=== PATIENT | female | born 1995 | race Caucasian/White ===

== ENCOUNTER 2017-02-23 22:55 | Inpatient (IN) | payer BC ==
[~2017-02-23] VITALS: Ht 167.6 cm; Wt 63.5 kg
[2017-02-23] MEDS ORDERED: LORazepam Inj 2mg/ml 1ml ONE (23:21)
[2017-02-23] MEDS ORDERED: LORazepam Inj 2mg/ml 1ml IV ONE ×3 (23:30→23:45)
[2017-02-23] MEDS ORDERED: Phenytoin 1,000 MG in NS 275 ML IV ONE (23:45)
[2017-02-24] VITALS (17 sets, daily range): BP systolic 113–162; BP diastolic 58–104
[2017-02-24 00:13] LABS: BASOPHILS % (AUTO) 0.8 % (0.0-2.0); EOSINOPHILS % (AUTO) 1.9 % (0.0-3.0); MEAN CORPUSCULAR HEMOGLOBIN 27.3 PG (27.0-31.0); MEAN CORPUSCULAR HGB CONC 33.8 G/DL (32.0-36.0); MEAN CORPUSCULAR VOLUME 81 FL (80-99); MEAN PLATELET VOLUME 7.3 FL (6.5-10.1); MONOCYTES % (AUTO) 6.5 % (1.0-10.0); NEUTROPHILS % (AUTO) 63.8 % (45.0-75.0); PLATELET COUNT 293 K/UL (150-450); RED CELL DISTRIBUTION WIDTH 14.8 % (11.6-14.8)
[2017-02-24 00:33] LABS: ACETAMINOPHEN < 10 ug/mL (10-30); ALANINE AMINOTRANSFERASE 13 U/L (3-41); ALBUMIN/GLOBULIN RATIO 1.4 (1.0-2.7); ALCOHOL < 10 mg/dL; ANION GAP 22 (5-15); ASPARTATE AMINO TRANSFERASE 15 U/L (5-40); CALCIUM 9.9 mg/dL (8.6-10.2); CARBON DIOXIDE 20 mEQ/L (20-30); CHLORIDE 98 mEQ/L (98-107); CREATININE 0.9 mg/dL (0.7-1.2); GLOMERULAR FILTRATION RATE > 60 mL/min (>60); HEMOLYSIS 7; SODIUM 140 mEQ/L (135-145); TOTAL PROTEIN 7.7 g/dL (6.6-8.7)
[2017-02-24] MEDS ORDERED: levETIRAcetam 1,000mg/NS100ml 100 ML IVPB ONE (01:15)
[2017-02-24] MEDS ORDERED: LORazepam Inj 2mg/ml 1ml IV ONE (01:30)
[2017-02-24] MEDS ORDERED: PROTONIX40 MG ORAL (02:00)
[2017-02-24] MEDS ORDERED: GABAPENTIN600 MG ORAL (02:00)
[2017-02-24] MEDS ORDERED: LAMICTAL100 MG ORAL (02:00)
[2017-02-24] MEDS ORDERED: PROPRANOLOL HCL20 MG ORAL (02:00)
[2017-02-24] MEDS ORDERED: MULTIVITAMINS1 EAC2 ORAL (02:00)
[2017-02-24] MEDS ORDERED: METRONIDAZOLE500 MG ORAL (02:00)
[2017-02-24] MEDS ORDERED: KEPPRA500 M4 ORAL (02:00)
[2017-02-24 02:09] LABS: APPEARANCE,URINE CLEAR; KETONES,URINE NEGATIVE (NEGATIVE); LEUKOCYTE ESTERASE ,URINE NEGATIVE (NEGATIVE); NITRITE,URINE NEGATIVE (NEGATIVE); PH,URINE 6 (4.5-8.0); PROTEIN,URINE 1+ (NEGATIVE); UROBILINOGEN,URINE NORMAL MG/DL (0.0-1.0)
[2017-02-24 02:34] LABS: RBC,URINE 0-2 /HPF (0 - 2); SQUAMOUS EPITHELIAL CELL,UR FEW /LPF (NONE/OCC); WBC,URINE 0-2 /HPF (0 - 2)
--- NOTE | 2017-02-24 03:10 | Emergency Room Report ---
History of Present Illness General Chief Complaint: Seizure Source: EMS Present Illness HPI 21-year-old female presents to ED status post seizure. Patient resides in rehabilitation facility. Per EMS patient had 2 seizures. Patient has history of seizures-takes Keppra. Denies drug use. Denies chest pain or shortness of breath. Denies fevers or chills. No other aggravating or leading factors. No other associated symptoms Allergies: Coded Allergies: No Known Allergies (Unverified , 02/23/17) Patient History Past Medical History: none Past Surgical History: none Pertinent Family History: none Social History: Denies: alcohol use, drug use, smoking Last Menstrual Period: a week ago Now: No Immunizations: UTD Reviewed Nursing Documentation: PMH: Agreed, PSxH: Agreed Nursing Documentation-PMH Hx Seizures: Yes Review of Systems All Other Systems: limited Physical Exam Vital Signs Date Time Temp Pulse Resp B/P Pulse Ox O2 Delivery O2 Flow Rate FiO2 02/23/17 22:51 98.1 118 16 123/74 99 Room Air 02/23/17 23:25 5.0 02/24/17 00:50 40 Sp02 EP Interpretation: reviewed, normal General Appearance: lethargic, obese Head: normocephalic Eyes: bilateral eye PERRL, bilateral eye normal inspection ENT: normal ENT inspection Neck: normal inspection Respiratory: chest non-tender, lungs clear, normal breath sounds, speaking full sentences Cardiovascular #1: tachycardia Gastrointestinal: normal bowel sounds, non tender, soft, non-distended, no guarding, no rebound Rectal: deferred Genitourinary: no CVA tenderness Musculoskeletal: normal inspection Neurologic: other - lthargic Psychiatric: other - lethargic Skin: normal inspection Lymphatic: normal inspection Procedures Critical Care Time Critical Care Time i. I feel this is a highly complex case requiring extensive working including EKG/Rhythm strip, Xray/CT/US, Blood/urine lab work, repeat exams while in ED, and administration of strong opiates/narcotics for pain control, admission to hospital or close patient follow up. Total time: 30 min bedside evaluation and treatment excludes procedures (EKG). Reason for critical care: Status epilepticus Possible complications: hypotension, hypertension, [place], shock, arrhythmias, metabolic acidosis, end organ damage, respiratory failure. Interventions: Labs, IV fluids, EKG. Ativan multiple times. Dilantin. Keppra. Intubation. Propofol Course: patient brought in for seizures. Patient had 2 seizures in the field. Patient had multiple seizures in ER. Multiple rounds of Ativan given without improvement. Patient given Dilantin loading does. Patient continued to have seizures. Patient intubated. Patient started on propofol Consultations: nursing staff, EMS, family Performed by: Dr Gilbert Tolerated well condition = critical j. because of unstable vital signs this patient had a condition that could potentially threaten life or limb. I feel this is a critical patient who required my full attention while patient was considered critical. Total Critical Care Time excluding procedures was greater than 35 minutes Intubation Intubation : Consent: Emergent Intubation Method: orotracheal Tube Size (cm): 7.5 Medications: Etomidate, Rocuronium Breath Sounds after Intubation: equal Intubation Complications: no complications Post Intubation Xray: Yes Attempts: One Patient Tolerated: Well Complications: None Medical Decision Making Diagnostic Impression: Primary Impression: Status epilepticus ER Course Hospital Course 21-year-old F presents to ED status post seizure. Differential diagnosis includes- breakthrough seizure, alcohol abuse, noncompliance with medication Clinical course Patient placed on stretcher. Initial history and physical I ordered labs, IV fluids Patient had multiple seizures in ED. Not controlled with multiple rounds of Ativan, Dilantin. Patient O2 saturations low. I made decision to intubate the patient Patient started on propofol drip Labs-electrolytes okay, no leukocytosis noted, hemoglobin/hematocrit stable. EKG-sinus tachycardia, no ischemic changes interpreted by me Chest x-ray shows ET tube in place Given loading dose of Keppra. Seizures currently controlled with propofol Case discussed with Dr. Webster and he agreed to accept the patient to his service for further care and support. i. I feel this is a highly complex case requiring extensive working including EKG/Rhythm strip, Xray/CT/US, Blood/urine lab work, repeat exams while in ED, and administration of strong opiates/narcotics for pain control, admission to hospital or close patient follow up. Diagnosis -status epilepticus admitted to ICU in critical condition Labs Test 02/23/17 23:40 02/24/17 01:35 White Blood Count 9.0 K/UL (4.8-10.8) Red Blood Count 4.20 M/UL (4.70-6.10) Hemoglobin 11.5 G/DL (14.2-18.0) Hematocrit 33.9 % (42.0-52.0) Mean Corpuscular Volume 81 FL (80-99) Mean Corpuscular Hemoglobin 27.3 PG (27.0-31.0) Mean Corpuscular Hemoglobin Concent 33.8 G/DL (32.0-36.0) Red Cell Distribution Width 14.8 % (11.6-14.8) Platelet Count 293 K/UL (150-450) Mean Platelet Volume 7.3 FL (6.5-10.1) Neutrophils (%) (Auto) 63.8 % (45.0-75.0) Lymphocytes (%) (Auto) 27.0 % (20.0-45.0) Monocytes (%) (Auto) 6.5 % (1.0-10.0) Eosinophils (%) (Auto) 1.9 % (0.0-3.0) Basophils (%) (Auto) 0.8 % (0.0-2.0) Sodium Level 140 mEQ/L (135-145) Potassium Level 4.0 mEQ/L (3.4-4.9) Chloride Level 98 mEQ/L (98-107) Carbon Dioxide Level 20 mEQ/L (20-30) Anion Gap 22 (5-15) Blood Urea Nitrogen 8 mg/dL (7-23) Creatinine 0.9 mg/dL (0.7-1.2) Estimat Glomerular Filtration Rate > 60 mL/min (>60) Glucose Level 102 mg/dL (74-106) Calcium Level 9.9 mg/dL (8.6-10.2) Total Bilirubin 0.3 mg/dL (0.0-1.2) Aspartate Amino Transf (AST/SGOT) 15 U/L (5-40) Alanine Aminotransferase (ALT/SGPT) 13 U/L (3-41) Alkaline Phosphatase 58 U/L (40-129) Total Protein 7.7 g/dL (6.6-8.7) Albumin 4.6 g/dL (3.5-5.2) Globulin 3.1 g/dL Albumin/Globulin Ratio 1.4 (1.0-2.7) Triglycerides Level 113 mg/dL (< 150) Salicylates Level < 1 mg/dL (10-30) Acetaminophen Level < 10 ug/mL (10-30) Serum Alcohol < 10 mg/dL Urine Color Pale yellow Urine Appearance Clear Urine pH 6 (4.5-8.0) Urine Specific [place] 1.015 (1.005-1.035) Urine Protein 1+ (NEGATIVE) Urine Glucose (UA) Negative (NEGATIVE) Urine Ketones Negative (NEGATIVE) Urine Occult Blood 2+ (NEGATIVE) Urine Nitrite Negative (NEGATIVE) Urine Bilirubin Negative (NEGATIVE) Urine Urobilinogen Normal MG/DL (0.0-1.0) Urine Leukocyte Esterase Negative (NEGATIVE) Urine RBC 0-2 /HPF (0 - 2) Urine WBC 0-2 /HPF (0 - 2) Urine Squamous Epithelial Cells Few /LPF (NONE/OCC) Urine Bacteria None /HPF (NONE) Urine HCG, Qualitative Negative Urine Opiates Screen Negative (NEGATIVE) Urine Barbiturates Screen Negative (NEGATIVE) Phencyclidine (PCP) Screen Negative (NEGATIVE) Urine Amphetamines Screen Negative (NEGATIVE) Urine Benzodiazepines Screen Positive (NEGATIVE) Urine Cocaine Screen Negative (NEGATIVE) Urine Marijuana (THC) Screen Negative (NEGATIVE) EKG Diagnostic Results Rate: tachycardiac Rhythm: NSR ST Segments: no acute changes ASA given to the pt in ED: No Rhythm Strip Diag. Results EP Interpretation: yes Rhythm: NSR, no PVC's, no ectopy Chest X-Ray Diagnostic Results Chest X-Ray Diagnostic Results : Chest X-Ray Ordered: Yes # of Views/Limited/Complete: 1 View Indication: Other - intubated EP Interpretation: Yes Interpretation: no consolidation, no effusion, no pneumothorax, no acute cardiopulmonary disease, other - ET tube in place Impression: Other - intubated Interpreting ER Provider: Electronically signed by Riky Gilbert MD Last Vital Signs Date Time Temp Pulse Resp B/P Pulse Ox O2 Delivery O2 Flow Rate FiO2 02/24/17 02:55 99 14 30 02/24/17 02:20 98.1 143/90 100 Mechanical Ventilator 5.0 Status: improved Disposition: ADMITTED INPATIENT Condition: Critical Referrals: NOT CHOSEN IPA/,REFERRING (PCP) RIKY GILBERT M.D. Feb 24, 2017 03:10
[2017-02-24] MEDS ORDERED: Morphine Sulfate 4mg/ml Inj IVP PRN (06:15)
[2017-02-24] MEDS ORDERED: Nitroglycerin Subl 0.4mg tab (Bottle Of 25) SL PRN (06:15)
[2017-02-24] MEDS ORDERED: LORazepam Inj 2mg/ml 1ml IV PRN (06:15)
[2017-02-24] MEDS ORDERED: DuoNeb 0.5-3(2.5)mg/3ml neb HHN PRN (06:15)
[2017-02-24] MEDS ORDERED: D5 1/2NS 1,000 ML IV SCH (07:00)
[2017-02-24 07:32] LABS: BASOPHILS % (AUTO) 0.6 % (0.0-2.0); EOSINOPHILS % (AUTO) 2.1 % (0.0-3.0); LYMPHOCYTES % (AUTO) 27.1 % (20.0-45.0); MEAN CORPUSCULAR HEMOGLOBIN 27.4 PG (27.0-31.0); MEAN CORPUSCULAR HGB CONC 33.2 G/DL (32.0-36.0); MEAN CORPUSCULAR VOLUME 83 FL (80-99); MEAN PLATELET VOLUME 7.3 FL (6.5-10.1); MONOCYTES % (AUTO) 8.1 % (1.0-10.0); NEUTROPHILS % (AUTO) 62.1 % (45.0-75.0); PLATELET COUNT 285 K/UL (150-450); RED BLOOD COUNT 4.18 M/UL (4.20-5.40); RED CELL DISTRIBUTION WIDTH 15.1 % (11.6-14.8); WHITE BLOOD COUNT 9.7 K/UL (4.8-10.8)
[2017-02-24 07:40] LABS: ALANINE AMINOTRANSFERASE 12 U/L (3-33); ALBUMIN/GLOBULIN RATIO 1.5 (1.0-2.7); ANION GAP 11 (5-15); ASPARTATE AMINO TRANSFERASE 16 U/L (5-40); BILIRUBIN,DIRECT 0.1 mg/dL (0.1-0.3); CALCIUM 9.4 mg/dL (8.6-10.2); CARBON DIOXIDE 26 mEQ/L (20-30); CHLORIDE 103 mEQ/L (98-107); CREATININE 0.9 mg/dL (0.5-0.9); GLOMERULAR FILTRATION RATE > 60 mL/min (>60); HEMOLYSIS 0; LACTATE DEHYDROGENASE 223 U/L (135-230); PHOSPHORUS 4.1 mg/dL (2.5-4.8); POTASSIUM 3.8 mEQ/L (3.4-4.9); SODIUM 140 mEQ/L (135-145); TOTAL PROTEIN 7.3 g/dL (6.6-8.7)
[2017-02-24 08:04] LABS: PROTHROMBIN TIME 10.5 SEC (9.30-11.50)
[2017-02-24] MEDS ORDERED: Heparin 5000 units/ml inj SUBQ SCH (09:00)
--- NOTE | 2017-02-24 10:48 | History and Physical ---
History of Present Illness General Date patient seen: Feb 24, 2017 Reason for Hospitalization: Seizure Present Illness HPI 21-year-old female presents to ED status post seizure. Patient resides in rehabilitation facility. Per EMS patient had 2 seizures. Patient has history of seizures, she is on Keppra. Denies drug use. Denies chest pain or shortness of breath. Denies fevers or chills. No other aggravating or leading factors. No other associated symptoms. Pt was in status epilepticus in ER and was started on Propofol drip and intubated and transferred to ICU. Allergies: Coded Allergies: No Known Allergies (Unverified , 02/23/17) Medication History Scheduled Gabapentin* (Gabapentin*), 600 MG ORAL THREE TIMES A DAY, (Reported) Lamotrigine* (Lamictal*), 100 MG ORAL DAILY, (Reported) Levetiracetam (Keppra), 500 MG ORAL BID, (Reported) Metronidazole* (Flagyl*), 500 MG ORAL TID, (Reported) Multivitamins* (Multivitamins*), 1 TAB ORAL DAILY, (Reported) Pantoprazole* (Protonix*), 40 MG ORAL DAILY, (Reported) Propranolol Hcl* (Inderal*), 20 MG ORAL THREE TIMES A DAY, (Reported) Patient History Healthcare decision maker Resuscitation status Full Code Advanced Directive on File No Past Medical/Surgical History Past Medical/Surgical History: (1) Seizure disorder Review of Systems Constitutional: Reports: no symptoms ENT: Reports: no symptoms Respiratory: Reports: no symptoms Cardiovascular: Reports: no symptoms Gastrointestinal: Reports: no symptoms Genitourinary: Reports: no symptoms Physical Exam General Appearance: WD/WN, no apparent distress Lines, tubes and drains: peripheral HEENT: normocephalic, atraumatic Neck: non-tender, normal alignment Respiratory/Chest: chest wall non-tender, lungs clear Breasts: no masses Cardiovascular/Chest: normal peripheral pulses Abdomen: normal bowel sounds Genitourinary/Rectal: normal genital exam Extremities: normal range of motion Last 24 Hour Vital Signs Date Time Temp Pulse Resp B/P Pulse Ox O2 Delivery O2 Flow Rate FiO2 02/24/17 10:00 112 16 134/61 100 Nasal Cannula 2.0 02/24/17 09:11 117 18 30 02/24/17 09:00 113 18 125/62 100 Mechanical Ventilator 30 02/24/17 08:11 30 02/24/17 08:02 97.6 102 16 136/63 100 Mechanical Ventilator 30 02/24/17 08:00 102 02/24/17 07:16 98.1 99 14 125/79 100 Mechanical Ventilator 5.0 30 02/24/17 06:52 98.1 99 14 125/79 100 Mechanical Ventilator 5.0 30 02/24/17 05:57 98.1 94 14 143/80 98 Mechanical Ventilator 5.0 30 02/24/17 05:30 98.1 99 14 137/77 96 Mechanical Ventilator 5.0 30 02/24/17 04:52 99 14 30 02/24/17 04:21 98.1 98 14 155/104 99 Mechanical Ventilator 5.0 30 02/24/17 03:25 98.1 101 14 162/100 100 Mechanical Ventilator 5.0 30 02/24/17 03:04 5.0 30 02/24/17 03:04 98.1 99 14 150/96 100 Mechanical Ventilator 5.0 30 02/24/17 02:55 99 14 30 02/24/17 02:20 98.1 100 14 143/90 100 Mechanical Ventilator 5.0 40 02/24/17 02:00 98.1 108 15 122/86 100 Mechanical Ventilator 5.0 40 02/24/17 01:01 40 02/24/17 00:55 119 16 40 02/24/17 00:50 98.1 122 14 135/102 94 Mechanical Ventilator 40 02/24/17 00:35 14 02/24/17 00:30 12 02/24/17 00:25 14 02/24/17 00:20 15 02/24/17 00:20 98.1 121 15 129/81 100 Simple Mask 5.0 02/23/17 23:25 118 16 Simple Mask 5.0 02/23/17 22:51 98.1 118 16 123/74 99 Room Air Intake and Output 02/23/17 02/24/17 19:00 07:00 Intake Total 1375 ml Output Total 825 ml Balance 550 ml Intake IV Total 1375 ml Output Urine Total 825 ml Laboratory Tests Test 02/23/17 23:40 02/24/17 01:35 02/24/17 06:40 White Blood Count 9.0 K/UL (4.8-10.8) 9.7 K/UL (4.8-10.8) Red Blood Count 4.20 M/UL (4.70-6.10) L 4.18 M/UL (4.20-5.40) L Hemoglobin 11.5 G/DL (14.2-18.0) L 11.4 G/DL (12.0-16.0) L Hematocrit 33.9 % (42.0-52.0) L 34.5 % (37.0-47.0) L Mean Corpuscular Volume 81 FL (80-99) 83 FL (80-99) Mean Corpuscular Hemoglobin 27.3 PG (27.0-31.0) 27.4 PG (27.0-31.0) Mean Corpuscular Hemoglobin Concent 33.8 G/DL (32.0-36.0) 33.2 G/DL (32.0-36.0) Red Cell Distribution Width 14.8 % (11.6-14.8) 15.1 % (11.6-14.8) H Platelet Count 293 K/UL (150-450) 285 K/UL (150-450) Mean Platelet Volume 7.3 FL (6.5-10.1) 7.3 FL (6.5-10.1) Neutrophils (%) (Auto) 63.8 % (45.0-75.0) 62.1 % (45.0-75.0) Lymphocytes (%) (Auto) 27.0 % (20.0-45.0) 27.1 % (20.0-45.0) Monocytes (%) (Auto) 6.5 % (1.0-10.0) 8.1 % (1.0-10.0) Eosinophils (%) (Auto) 1.9 % (0.0-3.0) 2.1 % (0.0-3.0) Basophils (%) (Auto) 0.8 % (0.0-2.0) 0.6 % (0.0-2.0) Sodium Level 140 mEQ/L (135-145) 140 mEQ/L (135-145) Potassium Level 4.0 mEQ/L (3.4-4.9) 3.8 mEQ/L (3.4-4.9) Chloride Level 98 mEQ/L (98-107) 103 mEQ/L (98-107) Carbon Dioxide Level 20 mEQ/L (20-30) 26 mEQ/L (20-30) Anion Gap 22 (5-15) H 11 (5-15) Blood Urea Nitrogen 8 mg/dL (7-23) 7 mg/dL (7-23) Creatinine 0.9 mg/dL (0.7-1.2) 0.9 mg/dL (0.5-0.9) Estimat Glomerular Filtration Rate > 60 mL/min (>60) > 60 mL/min (>60) Glucose Level 102 mg/dL (74-106) 94 mg/dL (74-106) Calcium Level 9.9 mg/dL (8.6-10.2) 9.4 mg/dL (8.6-10.2) Total Bilirubin 0.3 mg/dL (0.0-1.2) 0.4 mg/dL (0.0-1.2) Aspartate Amino Transf (AST/SGOT) 15 U/L (5-40) 16 U/L (5-40) Alanine Aminotransferase (ALT/SGPT) 13 U/L (3-41) 12 U/L (3-33) Alkaline Phosphatase 58 U/L (40-129) 54 U/L (35-104) Total Protein 7.7 g/dL (6.6-8.7) 7.3 g/dL (6.6-8.7) Albumin 4.6 g/dL (3.5-5.2) 4.4 g/dL (3.5-5.2) Globulin 3.1 g/dL 2.9 g/dL Albumin/Globulin Ratio 1.4 (1.0-2.7) 1.5 (1.0-2.7) Triglycerides Level 113 mg/dL (< 150) Salicylates Level < 1 mg/dL (10-30) L Acetaminophen Level < 10 ug/mL (10-30) L Serum Alcohol < 10 mg/dL Urine Color Pale yellow Urine Appearance Clear Urine pH 6 (4.5-8.0) Urine Specific [place] 1.015 (1.005-1.035) Urine Protein 1+ (NEGATIVE) H Urine Glucose (UA) Negative (NEGATIVE) Urine Ketones Negative (NEGATIVE) Urine Occult Blood 2+ (NEGATIVE) H Urine Nitrite Negative (NEGATIVE) Urine Bilirubin Negative (NEGATIVE) Urine Urobilinogen Normal MG/DL (0.0-1.0) Urine Leukocyte Esterase Negative (NEGATIVE) Urine RBC 0-2 /HPF (0 - 2) Urine WBC 0-2 /HPF (0 - 2) Urine Squamous Epithelial Cells Few /LPF (NONE/OCC) Urine Bacteria None /HPF (NONE) Urine HCG, Qualitative Negative Urine Opiates Screen Negative (NEGATIVE) Urine Barbiturates Screen Negative (NEGATIVE) Phencyclidine (PCP) Screen Negative (NEGATIVE) Urine Amphetamines Screen Negative (NEGATIVE) Urine Benzodiazepines Screen Positive (NEGATIVE) H Urine Cocaine Screen Negative (NEGATIVE) Urine Marijuana (THC) Screen Negative (NEGATIVE) Prothrombin Time 10.5 SEC (9.30-11.50) Prothromb Time International Ratio 1.0 (0.9-1.1) Activated Partial Thromboplast Time 30 SEC (23-33) Phosphorus Level 4.1 mg/dL (2.5-4.8) Direct Bilirubin 0.1 mg/dL (0.1-0.3) Lactate Dehydrogenase 223 U/L (135-230) Height (Feet): 5 Height (Inches): 6.00 Weight (Pounds): 140 Medications Current Medications Medications (Trade) Dose Ordered Sig/Tamara Route PRN Reason Start Time Stop Time Status Last Admin Dose Admin Acetaminophen (Tylenol) 650 mg Q4H PRN ORAL Fever 02/24/17 06:15 03/26/17 06:14 Albuterol/ Ipratropium (DuoNeb 0.5-3(2.5)mg/3ml) 3 ml Q4H PRN HHN Shortness of Breath 02/24/17 06:15 03/01/17 06:14 Dextrose (Dextrose 50%) STAT PRN IV Hypoglycemia 02/24/17 06:15 03/26/17 06:14 Dextrose/Sodium Chloride (D5 0.45% NS) 1,000 ml @ 75 mls/hr [id number] IV 02/24/17 07:00 03/26/17 06:59 02/24/17 07:00 Gabapentin (Neurontin) 600 mg THREE TIMES A DAY ORAL 02/24/17 09:00 03/26/17 08:59 Heparin Sodium (Porcine) (Heparin 5000 units/ml) 5,000 units EVERY 12 HOURS SUBQ 02/24/17 09:00 03/26/17 08:59 Lamotrigine (LaMICtal) 100 mg DAILY ORAL 02/24/17 09:00 03/26/17 08:59 Levetiracetam (Keppra) 500 mg BID ORAL 02/24/17 09:00 03/26/17 08:59 Lorazepam (Ativan 2mg/ml 1ml) 2 mg Q2H PRN IV agitation 02/24/17 06:15 03/03/17 06:14 Morphine Sulfate (Morphine Sulfate) 4 mg Q4H PRN IVP Severe Pain (Pain Scale 7-10) 02/24/17 06:15 03/03/17 06:14 Nitroglycerin (Ntg) 0.4 mg Q5M PRN SL Prn Chest Pain 02/24/17 06:15 03/26/17 06:14 Ondansetron HCl (Zofran) 4 mg Q6H PRN IVP Nausea & Vomiting 02/24/17 06:15 03/26/17 06:14 Assessment/Plan Problem List: (1) Acute respiratory failure ICD Codes: J96.00 - Acute respiratory failure, unspecified whether with hypoxia or hypercapnia SNOMED: 34598240 (2) Status epilepticus ICD Codes: G40.901 - Epilepsy, unspecified, not intractable, with status epilepticus SNOMED: 624544563 Respiratory: monitor respiratory rate, adjust FIO2, CXR, weaning trial Cardiac: continue to monitor HR/BP Renal: F/U I&O, keep IV fluid Infectious Disease: check cultures Gastrointestinal: continue feedings/current rate Endocrine: monitor blood sugar Hematologic: monitor H/H Neurologic: PRN Ativan, PRN Morphine Affect: PRN ativan Prophylaxis: Protonix, Heparin Disposition: keep in ICU Notes Reviewed: neuro Discussed with: nurses, consultants, telephonic case manager DREW IVERSON Feb 24, 2017 10:48
--- NOTE | 2017-02-24 13:19 | Diagnostic Imaging Report ---
Indication: Post endotracheal intubation Technique: One view of the chest Comparison: None Findings: Lungs and pleural spaces are clear. A linear band of the left lung base is probably extrinsic to the patient. There is an endotracheal tube in place, tip projected approximately 3 cm above the dann. Normal heart size Impression: Satisfactory endotracheal intubation No definite acute pulmonary process This agrees with the preliminary interpretation provided by the emergency room physician This agrees with the preliminary interpretation provided overnight by [facility] teleradiology service.
[2017-02-24] MEDS ORDERED: Zemuron 50mg/5ml Inj IV ONE (15:59)
[2017-02-24] MEDS ORDERED: Etomidate 40mg/20ml Inj IV ONE (15:59)
--- NOTE | 2017-02-24 16:24 | Cardiology Report ---
APPROVED REPORT EKG Measurement Heart [id number] Sinus tachycardia Otherwise normal ECG
--- NOTE | 2017-02-26 07:50 | Discharge Summary ---
Discharge Summary Hospital Course Date of Admission Feb 24, 2017 at 01:02 Date of Discharge Feb 24, 2017 at 16:00 Admitting Diagnosis STATUS EPILEPTICUS HPI Elizabeth Mccord is a 21 year old female who was admitted on Feb 24, 2017 at 01:02 for Status Epilepticus Hospital Course [id number] Discharge Discharge Disposition Patient left AMA Discharge Diagnoses: Patricia Johns NP Feb 26, 2017 07:50
--- NOTE | 2017-02-27 00:15 | Discharge Summary 2 SIG ---
DATE OF ADMISSION: 02/24/2017 DATE OF DISCHARGE: 02/24/2017 BRIEF HOSPITAL COURSE: The patient is a 21-year-old female who presented to ED post seizure. The patient resides in a rehabilitation facility and had a seizure event. She has a history of seizure disorder and has been on Keppra. On arrival to ED, she had multiple seizures, not controlled with multiple rounds of Ativan and Dilantin. O2 saturation was low, and she was orally intubated. Labs showed no leukocytosis with stable hemoglobin and hematocrit. EKG was in sinus tachycardia with no ischemic changes. She was given loading doses of Keppra and was given propofol. She was then admitted to ICU due to status epilepticus. She was given Lamictal, Keppra, and heparin for DVT prophylaxis. Stat chest x-ray showed satisfactory endotracheal intubation with no acute pulmonary process. The patient was eventually extubated on 02/24/2017 and was placed on seizure precautions. The patient became more awake and agitated, pulling out electrodes. Full treatment was not carried as the patient signed out against medical advice. She was seen by the drug abuse social worker prior to leaving the hospital. FINAL DIAGNOSES: 1. Acute respiratory failure requiring intubation, status post extubation. 2. Status epilepticus. 3. Noncompliance as the patient signed out against medical advice. Kristen Webster M.D. I have been assigned to dictate discharge summary on this account and I was not involved in the patient's management. Patricia Johns N.P. DR: UBALDO JOB#: [id number] CC:
== END 2017-02-24 16:00 | disposition left against medical advice (07) | DRG 208 ==
LOC: EDBD 22:55 → EMR 23:50 → EDSEX 23:50 → EDBEDREQ 02-24 00:35 → ICU 02-24 01:02 → EDBEDREQ 02-24 01:17
PROC: 5A1935Z Respiratory Ventilation, Less than 24 Consecutive Hours (ICD-10-PCS; principal; 2017-02-24)
PROC: 0BH17EZ Insertion of Endotracheal Airway into Trachea, Via Natural or Artificial Opening (ICD-10-PCS; principal; 2017-02-24)
DX: J96.00 Acute respiratory failure, unspecified whether with hypoxia or hypercapnia (principal); G40.901 Epilepsy, unspecified, not intractable, with status epilepticus; R00.0 Tachycardia, unspecified; Z91.19 Patient's noncompliance with other medical treatment and regimen; Z53.21 Procedure and treatment not carried out due to patient leaving prior to being seen by health care provider
CPT/HCPCS: 31500; 36415; 71010; 80053; 80299; 80300; 80329; 81003; 81025; 82248; 83615; 84100; 84478; 85025; 85610; 85730; 87081; 93005; 94002; J1165

== ENCOUNTER 2017-07-05 22:26 | Inpatient (IN) | payer BC ==
[~2017-07-05] VITALS: Ht 170.2 cm; Wt 105.2 kg
[~2017-07-05 22:26] MED LIST: GABAPENTIN600 MG ORAL; GABAPENTIN800 MG ORAL; KEPPRA500 M4 ORAL; LAMICTAL100 MG ORAL; METRONIDAZOLE500 MG ORAL; MULTIVITAMINS1 EAC2 ORAL; PROPRANOLOL HCL20 MG ORAL; PROTONIX40 MG ORAL
[2017-07-05] MEDS ORDERED: DiphenhydrAMINE 50mg/ml Inj IVP ONE (22:30)
[2017-07-05] MEDS ORDERED: Metoclopramide 10mg/2ml Inj IVP ONE (22:30)
[2017-07-05] MEDS ORDERED: Ketorolac 30mg Inj IV ONE (22:30)
[2017-07-05] MEDS ORDERED: CATAPRES0.2 MG ORAL (22:35)
[2017-07-05] MEDS ORDERED: LATUDA60 MG PO (22:35)
[2017-07-05] MEDS ORDERED: SEROQUEL200 MG ORAL (22:35)
[2017-07-05] MEDS ORDERED: METAXALL800 MG PO (22:35)
[2017-07-05] MEDS ORDERED: HYDROXYZINE PA100 MG ORAL (22:35)
[2017-07-05] MEDS ORDERED: CEPHALEXIN500 M1 ORAL (22:35)
[2017-07-05] MEDS ORDERED: ZOFRAN4 M3 ORAL (22:35)
[2017-07-05] MEDS ORDERED: LAMICTAL100 MG ORAL (22:35)
[2017-07-05] MEDS ORDERED: NORCO 5-325 TA1 EACH ORAL (22:35)
[2017-07-05] MEDS ORDERED: LEVETIRACETAM500 MG ORAL (22:35)
[2017-07-05] MEDS ORDERED: PROAIR HFA8.5 GM INH (22:35)
[2017-07-05] MEDS ORDERED: PHENERGAN25 M1 ORAL (22:35)
[2017-07-05] MEDS ORDERED: IBUPROFEN600 MG ORAL (22:35)
[2017-07-05 23:00] VITALS: BP 117/61
[2017-07-05 23:00] LABS: APPEARANCE,URINE CLEAR; KETONES,URINE NEGATIVE (NEGATIVE); LEUKOCYTE ESTERASE ,URINE 2+ (NEGATIVE); NITRITE,URINE NEGATIVE (NEGATIVE); PH,URINE 8 (4.5-8.0); PROTEIN,URINE NEGATIVE (NEGATIVE); UROBILINOGEN,URINE 1 MG/DL (0.0-1.0)
[2017-07-05 23:06] LABS: BACTERIA,URINE FEW /HPF; RBC,URINE 0-2 /HPF (0 - 2); SQUAMOUS EPITHELIAL CELL,UR FEW /LPF (NONE/OCC)
--- NOTE | 2017-07-05 23:07 | Emergency Room Report ---
History of Present Illness General Chief Complaint: Syncope Source: Patient, Medical Record, EMS Present Illness HPI The patient was brought in by EMS. She had a syncopal episode today and was eased to the floor. She's been feeling dizzy when she stands up. When paramedics stood her up she felt weak and dizzy. Her Accu-Chek in the field was normal. She's not been eating for last week. She complains of pain in her RUQ. She's recently diagnosed with gallbladder disease. Apparently she was going to have a evaluation by surgeon at this hospital Wednesday. She states she has 9/ 10 pain in the right upper quadrant that radiates towards her back and is constant. She's been taking Dilaudid for this pain and it has helped minimally. She had both CTs and ultrasounds at [facility] and [facility]. Records reviewed from [facility] 06/30 with ultrasound with fatty liver, multiple gall stones without evidence of obstruction. The patient's in a rehabilitation facility for opiate abuse. No dysuria, fevers, light stools, though they have been loose. No URI sy, cough , chest pain, extremity pain. Depressed about condition, no SI/HI. She has a h/o seizures and is taking medication. She presented 02/2017 with status epilepticus. Allergies: Coded Allergies: No Known Allergies (Unverified , 02/23/17) Patient History Past Medical History: see triage record, old chart reviewed Social History: Reports: smoking, drug use Social History Narrative in Rehab Last Menstrual Period: last month Now: No Reviewed Nursing Documentation: PMH: Agreed, PSxH: Agreed Nursing Documentation-PMH Hx Cardiac Problems: Yes Hx Neurological Problems: Yes Hx Seizures: Yes Review of Systems All Other Systems: negative except mentioned in HPI Physical Exam Vital Signs Date Time Temp Pulse Resp B/P (MAP) Pulse Ox O2 Delivery O2 Flow Rate FiO2 07/05/17 22:20 98.4 98 18 128/71 98 Room Air Sp02 EP Interpretation: reviewed, normal General Appearance: well appearing, no apparent distress, GCS 15 Head: normocephalic Eyes: bilateral eye normal inspection, bilateral eye PERRL, bilateral eye EOMI , bilateral eye anticteric ENT: moist mucus membranes Neck: supple Respiratory: lungs clear, normal breath sounds Cardiovascular #1: regular rate, rhythm Cardiovascular #2: 2+ radial (R) Gastrointestinal: normal inspection, normal bowel sounds, no mass, non- distended, no rebound, guarding - minimal RUQ, tenderness Musculoskeletal: back normal, gait/station normal, normal range of motion Neurologic: alert, oriented x3, grossly normal Psychiatric: depressed affect Skin: normal inspection, warm/dry Medical Decision Making Diagnostic Impression: Primary Impression: Biliary colic Additional Impressions: Syncope Qualified Codes: R55 - Syncope and collapse Symptomatic cholelithiasis ER Course Patient presents with two problems: syncope and RUQ pain. DDX: dehydration, vasovagal, arrhythmia amongst others. Regarding RUQ: cholecystitis, pancreatitis, PUD, colic, pain seeking behavior. Emergent evaluation for syncope with cardiac monitoring, labs. CXR not indicated as no suggestion of aspiration. Based on results, consider U/S for continue w/u of RUQ pain (not indicated with recent results unless labs indicate). She will initially be treated with non-narcotic medications for pain and given IV hydration. NSR on monitor. Labs with normal WBC, H/H and lytes including lipase. Patient still has 9/10 pain after Reglan Benadryl and Toradol. The Dilaudid is ordered. The patient was examined by Dr. Marcus. He requests patient admitted as third presentation with poor pain control and poor po intake (also syncope). The patient admitted medically under the care of Dr. Webster. Laboratory Tests Test 07/05/17 22:25 07/05/17 22:26 White Blood Count 6.3 K/UL (4.8-10.8) Red Blood Count 4.37 M/UL (4.20-5.40) Hemoglobin 12.8 G/DL (12.0-16.0) Hematocrit 37.1 % (37.0-47.0) Mean Corpuscular Volume 85 FL (80-99) Mean Corpuscular Hemoglobin 29.2 PG (27.0-31.0) Mean Corpuscular Hemoglobin Concent 34.5 G/DL (32.0-36.0) Red Cell Distribution Width 12.9 % (11.6-14.8) Platelet Count 186 K/UL (150-450) Mean Platelet Volume 7.1 FL (6.5-10.1) Neutrophils (%) (Auto) 48.2 % (45.0-75.0) Lymphocytes (%) (Auto) 41.3 % (20.0-45.0) Monocytes (%) (Auto) 6.0 % (1.0-10.0) Eosinophils (%) (Auto) 3.2 % (0.0-3.0) H Basophils (%) (Auto) 1.3 % (0.0-2.0) Prothrombin Time 9.9 SEC (9.30-11.50) Prothrombin Time INR 0.9 (0.9-1.1) PTT 24 SEC (23-33) Sodium Level 142 MMOL/L (136-145) Potassium Level 3.9 MMOL/L (3.5-5.1) Chloride Level 105 MMOL/L (98-107) Carbon Dioxide Level 23 MMOL/L (21-32) Anion Gap 15 mmol/L (5-15) Blood Urea Nitrogen 11 mg/dL (7-18) Creatinine 0.8 MG/DL (0.55-1.30) Estimate Glomerular Filtration Rate > 60 mL/min (>60) Glucose Level 98 MG/DL (74-106) Calcium Level 9.3 MG/DL (8.5-10.1) Total Bilirubin 0.3 MG/DL (0.2-1.0) Aspartate Amino Transferase (AST) 34 U/L (15-37) Alanine Aminotransferase (ALT) 37 U/L (12-78) Alkaline Phosphatase 83 U/L (46-116) Troponin I 0.000 ng/mL (0.000-0.056) Total Protein 8.1 G/DL (6.4-8.2) Albumin 4.3 G/DL (3.4-5.0) Globulin 3.8 g/dL Albumin/Globulin Ratio 1.1 (1.0-2.7) Lipase 134 U/L (73-393) Urine Color Yellow Urine Appearance Clear Urine pH 8 (4.5-8.0) Urine Specific [place] 1.015 (1.005-1.035) Urine Protein Negative (NEGATIVE) Urine Glucose (UA) Negative (NEGATIVE) Urine Ketones Negative (NEGATIVE) Urine Occult Blood Negative (NEGATIVE) Urine Nitrite Negative (NEGATIVE) Urine Bilirubin Negative (NEGATIVE) Urine Urobilinogen 1 MG/DL (0.0-1.0) H Urine Leukocyte Esterase 2+ (NEGATIVE) H Urine RBC 0-2 /HPF (0 - 2) Urine WBC 2-4 /HPF (0 - 2) Urine Squamous Epithelial Cells Few /LPF (NONE/OCC) Urine Bacteria Few /HPF (NONE) Urine HCG, Qualitative Negative Rhythm Strip Diag. Results EP Interpretation: yes Rhythm: NSR, no PVC's, no ectopy Status: improved Disposition: ADMITTED INPATIENT Condition: Serious Mickey Harrison M.D. Jul 05, 2017 23:07
[2017-07-05 23:18] LABS: BASOPHILS % (AUTO) 1.3 % (0.0-2.0); EOSINOPHILS % (AUTO) 3.2 % (0.0-3.0); LYMPHOCYTES % (AUTO) 41.3 % (20.0-45.0); MEAN CORPUSCULAR HEMOGLOBIN 29.2 PG (27.0-31.0); MEAN CORPUSCULAR HGB CONC 34.5 G/DL (32.0-36.0); MEAN CORPUSCULAR VOLUME 85 FL (80-99); MEAN PLATELET VOLUME 7.1 FL (6.5-10.1); NEUTROPHILS % (AUTO) 48.2 % (45.0-75.0); PLATELET COUNT 186 K/UL (150-450); RED BLOOD COUNT 4.37 M/UL (4.20-5.40); RED CELL DISTRIBUTION WIDTH 12.9 % (11.6-14.8); WHITE BLOOD COUNT 6.3 K/UL (4.8-10.8)
[2017-07-05 23:22] LABS: ANION GAP 15 mmol/L (5-15); CALCIUM 9.3 MG/DL (8.5-10.1); CARBON DIOXIDE 23 MMOL/L (21-32); CHLORIDE 105 MMOL/L (98-107); CREATININE 0.8 MG/DL (0.55-1.30); GLOMERULAR FILTRATION RATE > 60 mL/min (>60); POTASSIUM 3.9 MMOL/L (3.5-5.1); SODIUM 142 MMOL/L (136-145)
[2017-07-05 23:26] LABS: ALANINE AMINOTRANSFERASE 37 U/L (12-78); ALBUMIN/GLOBULIN RATIO 1.1 (1.0-2.7); ASPARTATE AMINO TRANSFERASE 34 U/L (15-37); LIPASE 134 U/L (73-393); TOTAL PROTEIN 8.1 G/DL (6.4-8.2)
[2017-07-05 23:34] LABS: INR 0.9 (0.9-1.1); PROTHROMBIN TIME 9.9 SEC (9.30-11.50)
[2017-07-06] VITALS (16 sets, daily range): BP systolic 102–159; BP diastolic 65–100
--- NOTE | 2017-07-06 00:14 | Consultation ---
History of Present Illness General Date patient seen: Jul 05, 2017 Chief Complaint: Syncope Present Illness HPI 21 year old female with history of seizure disorder currently undergoing rehab for drug abuse presents to ED after syncopal episode. Patient states that she has not been able to tolerate oral intake for the past two weeks because of excruciating RUQ abdominal pain. Because of this she has felt weak and has had syncopal episodes. In the past two weeks she has had 3x ED visits for RUQ pain. She was diagnosed with cholelithiasis and was scheduled to see my as an outpatient this coming Wednesday for evaluation of symptomatic cholelithiasis and possible elective cholecystectomy. When seen at bedside, patient states that she feels better but continues to have RUQ discomfort. States that she was doing well until two weeks ago when she had her first episode of RUQ pain. Describes pain as 10/10 at max sharp cramping RUQ tenderness with radiation to the right shoulder and scapula. Has had associated nausea and multiple episodes of bilious emesis. States that pain usually after fatty meals and can last for hours. Was diagnosed with symptomatic cholelithiasis during last ED visit at outside facility. Is unable to tolerate oral diet due to fear of recurrent pain with meals. Has been more fatigued because of decreased oral intake and has had syncopal episodes including the one earlier tonight. Allergies: Coded Allergies: No Known Allergies (Unverified , 02/23/17) Medication History Scheduled Albuterol Sulfate* (Proair Hfa*), 1 PUFF INH Q6H, (Reported) Albuterol Sulfate* (Proair Hfa*), Unknown Dose INH Q6H, (Reported) Cephalexin* (Cephalexin*), 500 MG ORAL TWICE A DAY, (Reported) Clonidine Hcl* (Catapres*), Unknown Dose ORAL Q6HR, (Reported) Gabapentin* (Gabapentin*), 600 MG ORAL THREE TIMES A DAY, (Reported) Gabapentin* (Gabapentin*), 900 MG ORAL THREE TIMES A DAY, (Reported) Hydroxyzine Pamoate* (Hydroxyzine Pamoate*), 50 MG ORAL Q6H, (Reported) Ibuprofen* (Motrin*), 600 MG ORAL THREE TIMES A DAY, (Reported) Lamotrigine* (Lamictal*), 100 MG ORAL DAILY, (Reported) Lamotrigine* (Lamictal*), 100 MG ORAL DAILY, (Reported) Levetiracetam (Keppra), 500 MG ORAL BID, (Reported) Levetiracetam* (Levetiracetam*), 500 MG ORAL TWICE A DAY, (Reported) Lurasidone HCl (Latuda), 60 MG PO DAILY, (Reported) Metaxalone (Metaxall), 800 MG PO FOUR TIMES A DAY, (Reported) Metronidazole* (Flagyl*), 500 MG ORAL TID, (Reported) Multivitamins* (Multivitamins*), 1 TAB ORAL DAILY, (Reported) Pantoprazole* (Protonix*), 40 MG ORAL DAILY, (Reported) Promethazine Hcl* (Phenergan*), 25 MG ORAL Q6H, (Reported) Propranolol Hcl* (Inderal*), 20 MG ORAL THREE TIMES A DAY, (Reported) Quetiapine Fumarate* (Seroquel*), 300 MG ORAL DAILY, (Reported) Scheduled PRN Hydrocodone Bit/Acetaminophen 5-325* ([place] 5-325*), 1 TAB ORAL Q6H PRN for For Pain, (Reported) Ondansetron* (Zofran*), 4 MG ORAL Q6H PRN for Nausea & Vomiting, (Reported) Patient History History Provided By: Patient, Medical Record Healthcare decision maker Resuscitation status Advanced Directive on File Past Medical/Surgical History Past Medical/Surgical History: (1) Cholecystitis, acute with cholelithiasis (2) Symptomatic cholelithiasis (3) Seizure disorder (4) Acute respiratory failure Review of Systems Constitutional: Reports: malaise, weakness Eye: Denies: no symptoms, see HPI, eye pain, blurred vision, tearing, double vision, nose pain, nose congestion, acuity changes, discharge, other ENT: Denies: no symptoms, see HPI, ear pain, ear discharge, nose pain, nose congestion, throat pain, throat swelling, mouth pain, hearing loss, nasal discharge, other Respiratory: Denies: no symptoms, see HPI, cough, orthopnea, shortness of breath, stridor, wheezing, QUILES, sputum, other Cardiovascular: Denies: no symptoms, see HPI, chest pain, edema, palpitations, syncope, PND, other Gastrointestinal: Reports: abdominal pain, nausea, vomiting Genitourinary: Denies: no symptoms, see HPI, discharge, dysuria, frequency, hematuria, pain, retention, incontinence, urgency, vag bleed/dc, other Musculoskeletal: Denies: no symptoms, see HPI, back pain, gout, joint pain, joint swelling, muscle pain, muscle stiffness, other Skin: Denies: no symptoms, see HPI, rash, change in color, change in hair/nails , dryness, lesions, other Psychiatric: Denies: no symptoms, see HPI, prior hx, anxiety, depressed feelings, emotional problems, SI, HI, hallucinations, other Neurological: Reports: syncope Endocrine: Denies: no symptoms, see HPI, excessive sweating, flushing, intolerance to temperature, increased thirst, increased urine, unexplained weight loss, other Hematologic/Lymphatic: Denies: no symptoms, see HPI, anemia, blood clots, easy bleeding, easy bruising, swollen glands, diathesis, other All Other Systems: negative except mentioned in HPI Physical Exam General Appearance: WD/WN, alert Lines, tubes and drains: peripheral HEENT: normocephalic, PERRL Neck: normal inspection Respiratory/Chest: normal breath sounds, no respiratory distress, no accessory muscle use Cardiovascular/Chest: normal peripheral pulses, normal rate, regular rhythm Abdomen: normal bowel sounds, soft, no organomegaly, no mass, other - focal RUQ tenderness with rebound and voluntary guarding Extremities: normal inspection Skin Exam: normal pigmentation Neurologic: alert, oriented x 3, responsive Last 24 Hour Vital Signs Date Time Temp Pulse Resp B/P (MAP) Pulse Ox O2 Delivery O2 Flow Rate FiO2 07/05/17 22:20 98.4 98 18 128/71 98 Room Air Laboratory Tests Test 07/05/17 22:25 07/05/17 22:26 White Blood Count 6.3 K/UL (4.8-10.8) Red Blood Count 4.37 M/UL (4.20-5.40) Hemoglobin 12.8 G/DL (12.0-16.0) Hematocrit 37.1 % (37.0-47.0) Mean Corpuscular Volume 85 FL (80-99) Mean Corpuscular Hemoglobin 29.2 PG (27.0-31.0) Mean Corpuscular Hemoglobin Concent 34.5 G/DL (32.0-36.0) Red Cell Distribution Width 12.9 % (11.6-14.8) Platelet Count 186 K/UL (150-450) Mean Platelet Volume 7.1 FL (6.5-10.1) Neutrophils (%) (Auto) 48.2 % (45.0-75.0) Lymphocytes (%) (Auto) 41.3 % (20.0-45.0) Monocytes (%) (Auto) 6.0 % (1.0-10.0) Eosinophils (%) (Auto) 3.2 % (0.0-3.0) H Basophils (%) (Auto) 1.3 % (0.0-2.0) Prothrombin Time 9.9 SEC (9.30-11.50) Prothromb Time International Ratio 0.9 (0.9-1.1) Activated Partial Thromboplast Time 24 SEC (23-33) Sodium Level 142 MMOL/L (136-145) Potassium Level 3.9 MMOL/L (3.5-5.1) Chloride Level 105 MMOL/L (98-107) Carbon Dioxide Level 23 MMOL/L (21-32) Anion Gap 15 mmol/L (5-15) Blood Urea Nitrogen 11 mg/dL (7-18) Creatinine 0.8 MG/DL (0.55-1.30) Estimat Glomerular Filtration Rate > 60 mL/min (>60) Glucose Level 98 MG/DL (74-106) Calcium Level 9.3 MG/DL (8.5-10.1) Total Bilirubin 0.3 MG/DL (0.2-1.0) Aspartate Amino Transf (AST/SGOT) 34 U/L (15-37) Alanine Aminotransferase (ALT/SGPT) 37 U/L (12-78) Alkaline Phosphatase 83 U/L (46-116) Troponin I 0.000 ng/mL (0.000-0.056) Total Protein 8.1 G/DL (6.4-8.2) Albumin 4.3 G/DL (3.4-5.0) Globulin 3.8 g/dL Albumin/Globulin Ratio 1.1 (1.0-2.7) Lipase 134 U/L (73-393) Urine Color Yellow Urine Appearance Clear Urine pH 8 (4.5-8.0) Urine Specific [place] 1.015 (1.005-1.035) Urine Protein Negative (NEGATIVE) Urine Glucose (UA) Negative (NEGATIVE) Urine Ketones Negative (NEGATIVE) Urine Occult Blood Negative (NEGATIVE) Urine Nitrite Negative (NEGATIVE) Urine Bilirubin Negative (NEGATIVE) Urine Urobilinogen 1 MG/DL (0.0-1.0) H Urine Leukocyte Esterase 2+ (NEGATIVE) H Urine RBC 0-2 /HPF (0 - 2) Urine WBC 2-4 /HPF (0 - 2) Urine Squamous Epithelial Cells Few /LPF (NONE/OCC) Urine Bacteria Few /HPF (NONE) Urine HCG, Qualitative Negative Height (Feet): 5 Height (Inches): 7.00 Weight (Pounds): 232 Medications Current Medications Medications (Trade) Dose Ordered Sig/Tamara Route PRN Reason Start Time Stop Time Status Last Admin Dose Admin Sodium Chloride 1,000 ml @ 300 mls/hr Q3H20M IV 07/05/17 22:30 08/04/17 22:29 07/05/17 23:00 Assessment/Plan Problem List: (1) Cholecystitis, acute with cholelithiasis Assessment & Plan: 21F with known history of symptomatic cholelithiasis presents with syncopal episode and RUQ tenderness with associated nausea and emesis. Afebrile, HD stable, labs okay, outside ultrasound reviewed and noted cholelithiasis, on exam with focal RUQ tenderness with rebound and voluntary guarding. Has pain with meals and has been unable to tolerate oral diet because of pain/fear of pain. Has had 3x ED visits in the past two weeks since onset of symptoms. Given above history and exam recommend cholecystectomy. She has no appetite and cannot tolerate oral diet. She has persistent RUQ pain which is worse with diet. I do not see any benefit in waiting for her condition to worsen prior to surgical intervention. -NPO with IV fluids -IV Abx -will schedule for lap vs open odette next available time -consent -thank you. ICD Codes: K80.00 - Calculus of gallbladder with acute cholecystitis without obstruction SNOMED: [id number] Status: stable Emmanuel Marcus Jul 06, 2017 00:14
[2017-07-06] MEDS ORDERED: Hydromorphone 0.5mg/0.5ml inj IVP PRN ×2 (00:15→14:00)
[2017-07-06] MEDS ORDERED: HYDROmorphone 1mg/ml Carpuject IVP ONE (00:15)
[2017-07-06] MEDS ORDERED: Metoclopramide 10mg/2ml Inj IVP PRN ×3 (00:15→14:00)
[2017-07-06] MEDS ORDERED: Acetaminophen 650 MG SUPP RECTAL PRN (00:15)
[2017-07-06] MEDS ORDERED: HYDROmorphone 1mg/ml Carpuject IVP PRN ×2 (00:15→14:00)
[2017-07-06] MEDS ORDERED: DiphenhydrAMINE 50mg/ml Inj IVP PRN ×3 (00:15→14:00)
--- NOTE | 2017-07-06 00:15 | Pre-Procedure Note/Attestation ---
Pre-Procedure Note/Attestation Complete Prior to Procedure Planned Procedure: not applicable Procedure Narrative: laparoscopic cholecystectomy, possible open Indications for Procedure Pre-Operative Diagnosis: acute cholecystitis Attestation I attest that I discussed the nature of the procedure; its benefits; risks and complications; and alternatives (and the risks and benefits of such alternatives ), prior to the procedure, with the patient (or the patient's legal quality audit representative). I attest that, if there was a reasonable possibility of needing a blood transfusion, the patient (or the patient's legal quality audit representative) was given the [facility] standardized written summary, pursuant to the [place] Blood Safety Act ([place] Health and Safety Code # 1645, as amended). I attest that I re-evaluated the patient just prior to the surgery and that there has been no change in the patient's H&P, except as documented below: Emmanuel Marcus Jul 06, 2017 00:15
[2017-07-06] MEDS: D5 1/2NS w/KCl 20mEq 1,000 ML IV SCH ×3 (02:43→17:00)
[2017-07-06] MEDS: cefTRIAXone 1 GM in NS 55 ML IVPB SCH (08:59)
--- NOTE | 2017-07-06 10:44 | Consultation ---
History of Present Illness General Date patient seen: Jul 06, 2017 Time patient seen: 12:00 Chief Complaint: Syncope Present Illness HPI 21 y/o F with hx of seizure disorder, drug abuse currently on rehab presents to ED on 07/05 after syncopal episode. Patient endorsed not being able to tolerate PO intake for the last 2 weeks given excruciating RUQ abd pain. Had visited ED x3 times in the last 2 weeks. Patient diagnosed with cholelithiasis and was scheduled to see surgeon as outpatient. Pain described as 10/10, sharp, cramping with radiation to shoulder and scapula Allergies: Coded Allergies: No Known Allergies (Unverified , 02/23/17) Medication History Scheduled Albuterol Sulfate* (Proair Hfa*), 1 PUFF INH Q6H, (Reported) Albuterol Sulfate* (Proair Hfa*), Unknown Dose INH Q6H, (Reported) Cephalexin* (Cephalexin*), 500 MG ORAL TWICE A DAY, (Reported) Clonidine Hcl* (Catapres*), Unknown Dose ORAL Q6HR, (Reported) Gabapentin* (Gabapentin*), 600 MG ORAL THREE TIMES A DAY, (Reported) Gabapentin* (Gabapentin*), 900 MG ORAL THREE TIMES A DAY, (Reported) Hydroxyzine Pamoate* (Hydroxyzine Pamoate*), 50 MG ORAL Q6H, (Reported) Ibuprofen* (Motrin*), 600 MG ORAL THREE TIMES A DAY, (Reported) Lamotrigine* (Lamictal*), 100 MG ORAL DAILY, (Reported) Lamotrigine* (Lamictal*), 100 MG ORAL DAILY, (Reported) Levetiracetam (Keppra), 500 MG ORAL BID, (Reported) Levetiracetam* (Levetiracetam*), 500 MG ORAL TWICE A DAY, (Reported) Lurasidone HCl (Latuda), 60 MG PO DAILY, (Reported) Metaxalone (Metaxall), 800 MG PO FOUR TIMES A DAY, (Reported) Metronidazole* (Flagyl*), 500 MG ORAL TID, (Reported) Multivitamins* (Multivitamins*), 1 TAB ORAL DAILY, (Reported) Pantoprazole* (Protonix*), 40 MG ORAL DAILY, (Reported) Promethazine Hcl* (Phenergan*), 25 MG ORAL Q6H, (Reported) Propranolol Hcl* (Inderal*), 20 MG ORAL THREE TIMES A DAY, (Reported) Quetiapine Fumarate* (Seroquel*), 300 MG ORAL DAILY, (Reported) Scheduled PRN Hydrocodone Bit/Acetaminophen 5-325* ([place] 5-325*), 1 TAB ORAL Q6H PRN for For Pain, (Reported) Ondansetron* (Zofran*), 4 MG ORAL Q6H PRN for Nausea & Vomiting, (Reported) Patient History Healthcare decision maker Resuscitation status Full Code Advanced Directive on File Patient History Narrative PMhx as above: SHx:opioid abuse on rehab Fhx non contributory Review of Systems All Other Systems: negative except mentioned in HPI Physical Exam Physical Exam Narrative not done as patient in OR Last 24 Hour Vital Signs Date Time Temp Pulse Resp B/P (MAP) Pulse Ox O2 Delivery O2 Flow Rate FiO2 07/06/17 08:00 97.5 81 17 127/81 07/06/17 04:00 97.3 82 18 132/70 97 Room Air 07/06/17 01:00 97.6 92 21 125/71 92 Room Air 07/06/17 01:00 97.6 92 21 125/71 92 Room Air 07/06/17 00:45 98.4 93 18 129/77 98 Room Air 07/05/17 23:00 98.4 86 18 117/61 98 Room Air 07/05/17 22:20 98.4 98 18 128/71 98 Room Air Laboratory Tests Test 07/05/17 22:25 07/05/17 22:26 White Blood Count 6.3 K/UL (4.8-10.8) Red Blood Count 4.37 M/UL (4.20-5.40) Hemoglobin 12.8 G/DL (12.0-16.0) Hematocrit 37.1 % (37.0-47.0) Mean Corpuscular Volume 85 FL (80-99) Mean Corpuscular Hemoglobin 29.2 PG (27.0-31.0) Mean Corpuscular Hemoglobin Concent 34.5 G/DL (32.0-36.0) Red Cell Distribution Width 12.9 % (11.6-14.8) Platelet Count 186 K/UL (150-450) Mean Platelet Volume 7.1 FL (6.5-10.1) Neutrophils (%) (Auto) 48.2 % (45.0-75.0) Lymphocytes (%) (Auto) 41.3 % (20.0-45.0) Monocytes (%) (Auto) 6.0 % (1.0-10.0) Eosinophils (%) (Auto) 3.2 % (0.0-3.0) H Basophils (%) (Auto) 1.3 % (0.0-2.0) Prothrombin Time 9.9 SEC (9.30-11.50) Prothromb Time International Ratio 0.9 (0.9-1.1) Activated Partial Thromboplast Time 24 SEC (23-33) Sodium Level 142 MMOL/L (136-145) Potassium Level 3.9 MMOL/L (3.5-5.1) Chloride Level 105 MMOL/L (98-107) Carbon Dioxide Level 23 MMOL/L (21-32) Anion Gap 15 mmol/L (5-15) Blood Urea Nitrogen 11 mg/dL (7-18) Creatinine 0.8 MG/DL (0.55-1.30) Estimat Glomerular Filtration Rate > 60 mL/min (>60) Glucose Level 98 MG/DL (74-106) Calcium Level 9.3 MG/DL (8.5-10.1) Total Bilirubin 0.3 MG/DL (0.2-1.0) Aspartate Amino Transf (AST/SGOT) 34 U/L (15-37) Alanine Aminotransferase (ALT/SGPT) 37 U/L (12-78) Alkaline Phosphatase 83 U/L (46-116) Troponin I 0.000 ng/mL (0.000-0.056) Total Protein 8.1 G/DL (6.4-8.2) Albumin 4.3 G/DL (3.4-5.0) Globulin 3.8 g/dL Albumin/Globulin Ratio 1.1 (1.0-2.7) Lipase 134 U/L (73-393) Urine Color Yellow Urine Appearance Clear Urine pH 8 (4.5-8.0) Urine Specific [place] 1.015 (1.005-1.035) Urine Protein Negative (NEGATIVE) Urine Glucose (UA) Negative (NEGATIVE) Urine Ketones Negative (NEGATIVE) Urine Occult Blood Negative (NEGATIVE) Urine Nitrite Negative (NEGATIVE) Urine Bilirubin Negative (NEGATIVE) Urine Urobilinogen 1 MG/DL (0.0-1.0) H Urine Leukocyte Esterase 2+ (NEGATIVE) H Urine RBC 0-2 /HPF (0 - 2) Urine WBC 2-4 /HPF (0 - 2) Urine Squamous Epithelial Cells Few /LPF (NONE/OCC) Urine Bacteria Few /HPF (NONE) Urine HCG, Qualitative Negative Height (Feet): 5 Height (Inches): 7.00 Weight (Pounds): 232 Medications Current Medications Medications (Trade) Dose Ordered Sig/Tamara Route PRN Reason Start Time Stop Time Status Last Admin Dose Admin Acetaminophen (Tylenol) 650 mg Q4H PRN RECTAL FEVER 07/06/17 00:15 08/05/17 00:14 Al Hydroxide/Mg Hydroxide (Mylanta) 15 ml Q6H PRN ORAL DYSPEPSIA 07/06/17 00:15 08/05/17 00:14 Ceftriaxone Sodium 1 gm/ Sodium Chloride 55 ml @ 110 mls/hr DAILY IVPB 07/06/17 09:00 07/13/17 08:59 07/06/17 08:59 Dextrose/ Electrolytes 1,000 ml @ 125 mls/hr Q8H IV 07/06/17 01:00 08/05/17 00:59 07/06/17 02:43 Diphenhydramine HCl (Benadryl) 12.5 mg Q6H PRN IVP Itching/Pruritis 07/06/17 00:15 08/05/17 00:14 Hydromorphone HCl (Dilaudid) 0.5 mg Q3H PRN IVP Pain Score 1-3 07/06/17 00:15 07/13/17 00:14 07/06/17 08:32 Hydromorphone HCl (Dilaudid) 1 mg Q3H PRN IVP pain score 4-6 07/06/17 00:15 07/13/17 00:14 Hydromorphone HCl (Dilaudid) 2 mg Q3H PRN IVP pain score 7-10 07/06/17 00:15 07/13/17 00:14 07/06/17 03:08 Levetiracetam (Keppra) 500 mg BID ORAL 07/06/17 09:00 08/05/17 08:59 07/06/17 08:32 Metoclopramide HCl (Reglan) 10 mg Q6H PRN IVP Nausea & Vomiting 07/06/17 00:15 08/05/17 00:14 Ondansetron HCl (Zofran) 4 mg Q6H PRN IVP Nausea & Vomiting 07/06/17 00:15 08/05/17 00:14 Assessment/Plan Assessment/Plan Abx: CEftriaxone 07/06- Assesment: Acute cholecystitis Afebrile, no leukocytosis Seizure disorder Opioid abuse on rehab Plan: -Continue Ceftriaxone for acute cholecysitis -for lap vs open cholecystectomy today -monitor CBC/BMP, temperatures Thank you for this consultation. Will continue to follow along with you. Discussed with JUAN. Luz Dumont M.D. Jul 06, 2017 10:44
[2017-07-06] MEDS ORDERED: Iothalamate Meglumine 60% 30ML INJ ONE (10:46)
[2017-07-06] MEDS ORDERED: Ropivacaine 5mg/ml Vial 30ml INJ ONE (10:46)
--- NOTE | 2017-07-06 11:20 | General Progress Note ---
Progress Note Progress Note Surgery: patient seen and examined at bedside. states she is feeling okay but still has RUQ discomfort. mild nausea but no emesis currently. States that ultrasound was already performed and during ultrasound she had fair amount of RUQ pain during exam. afebrile, HD stable, VSS. on exam still has RUQ focal tenderness +Garay's. -will proceed with lap vs open odette today. -consent in chart. Emmanuel Marcus Jul 06, 2017 11:20
[2017-07-06] MEDS ORDERED: NS Irrig 1000ml IRRIG ONE (11:55)
[2017-07-06] MEDS ORDERED: Neostigmine 1mg/ml 10ml Inj ONE (12:00)
[2017-07-06] MEDS ORDERED: fentaNYL 100 mcg/2 mL IV ONE (12:00)
[2017-07-06] MEDS ORDERED: Morphine Sulfate 10mg/ml Inj ONE (12:00)
[2017-07-06] MEDS ORDERED: Propofol 200mg/20ml IV ONE (12:00)
[2017-07-06] MEDS ORDERED: Ketorolac 30mg Inj ONE (12:00)
[2017-07-06] MEDS ORDERED: Midazolam 2mg/2ml Inj ONE (12:00)
[2017-07-06] MEDS ORDERED: Metoclopramide 10mg/2ml Inj ONE (12:00)
[2017-07-06] MEDS ORDERED: Glycopyrrolate 0.2mg/ml 1ml Vial ONE (12:00)
[2017-07-06] MEDS ORDERED: NS Irrig 1000ml ONE (12:00)
[2017-07-06] MEDS ORDERED: Succinylcholine 20mg/ml 10ml vial ONE (12:00)
[2017-07-06] MEDS ORDERED: Sterile Water Irrig 1000ml IRRIG ONE (12:00)
[2017-07-06] MEDS ORDERED: Zemuron 50mg/5ml Inj IV ONE (12:00)
[2017-07-06] MEDS ORDERED: LR 1000ml ONE (12:00)
[2017-07-06] MEDS ORDERED: Lidocaine 1% 10mg/ml/EPI 0.01mg/ml 50ml INJ ONE (12:39)
[2017-07-06] MEDS ORDERED: LR 1000ml 1,000 ML IVLG SCH (12:58)
[2017-07-06] MEDS ORDERED: Morphine Sulfate 2mg/ml Inj IVP PRN (13:00)
[2017-07-06] MEDS ORDERED: Ketorolac 30mg Inj IV PRN (13:00)
[2017-07-06] MEDS ORDERED: Midazolam 2mg/2ml Inj IVP PRN (13:00)
--- NOTE | 2017-07-06 13:02 | Anethesia Preoperative Eval ---
Anesthesia Pre-op PMH/ROS General Date of Evaluation: Jul 06, 2017 Time of Evaluation: 12:00 Anesthesiologist: jono ASA Score: ASA 1 Mallampati Score Class I : Soft palate, uvula, fauces, pillars visible Class II: Soft palate, uvula, fauces visible Class III: Soft palate, base of uvula visible Class IV: Only hard plate visible Mallampati Classification: Class I Diagnosis: Acute Cholecystitis Surgical Procedure: Lap Gina Anesthesia History: none Family History: no anesthesia problems Allergies: Coded Allergies: No Known Allergies (Unverified , 02/23/17) Medications: see eMAR Anesthesia Pre-op Phys. Exam Physician Exam Last Vital Signs Date Time Temp Pulse Resp B/P (MAP) Pulse Ox O2 Delivery O2 Flow Rate FiO2 07/06/17 12:00 97.6 77 17 102/65 07/06/17 04:00 97 Room Air Constitutional: NAD Neurologic: CN 2-12 intact Cardiovascular: RRR Respiratory: CTA Gastrointestinal: S/NT/ND Airway Exam Mallampati Score: Class II MO: full ROM: full Teeth: intact Anesthesia Pre-op A/P Labs Hematology Test 07/05/17 22:25 White Blood Count 6.3 K/UL (4.8-10.8) Red Blood Count 4.37 M/UL (4.20-5.40) Hemoglobin 12.8 G/DL (12.0-16.0) Hematocrit 37.1 % (37.0-47.0) Mean Corpuscular Volume 85 FL (80-99) Mean Corpuscular Hemoglobin 29.2 PG (27.0-31.0) Mean Corpuscular Hemoglobin Concent 34.5 G/DL (32.0-36.0) Red Cell Distribution Width 12.9 % (11.6-14.8) Platelet Count 186 K/UL (150-450) Mean Platelet Volume 7.1 FL (6.5-10.1) Neutrophils (%) (Auto) 48.2 % (45.0-75.0) Lymphocytes (%) (Auto) 41.3 % (20.0-45.0) Monocytes (%) (Auto) 6.0 % (1.0-10.0) Eosinophils (%) (Auto) 3.2 % (0.0-3.0) H Basophils (%) (Auto) 1.3 % (0.0-2.0) Coagulation Test 07/05/17 22:25 Prothrombin Time 9.9 SEC (9.30-11.50) Prothromb Time International Ratio 0.9 (0.9-1.1) Activated Partial Thromboplast Time 24 SEC (23-33) Chemistry Test 07/05/17 22:25 Sodium Level 142 MMOL/L (136-145) Potassium Level 3.9 MMOL/L (3.5-5.1) Chloride Level 105 MMOL/L (98-107) Carbon Dioxide Level 23 MMOL/L (21-32) Anion Gap 15 mmol/L (5-15) Blood Urea Nitrogen 11 mg/dL (7-18) Creatinine 0.8 MG/DL (0.55-1.30) Estimat Glomerular Filtration Rate > 60 mL/min (>60) Glucose Level 98 MG/DL (74-106) Calcium Level 9.3 MG/DL (8.5-10.1) Total Bilirubin 0.3 MG/DL (0.2-1.0) Aspartate Amino Transf (AST/SGOT) 34 U/L (15-37) Alanine Aminotransferase (ALT/SGPT) 37 U/L (12-78) Alkaline Phosphatase 83 U/L (46-116) Troponin I 0.000 ng/mL (0.000-0.056) Total Protein 8.1 G/DL (6.4-8.2) Albumin 4.3 G/DL (3.4-5.0) Globulin 3.8 g/dL Albumin/Globulin Ratio 1.1 (1.0-2.7) Lipase 134 U/L (73-393) Urine Test Test 07/05/17 22:26 Urine HCG, Qualitative Negative Risk Assessment & Plan Plan: GA Pre-Antibiotics Drug: Ceftriaxone Given Within 1 Hr of Incision: Yes Mickey Jarrett M.D. Jul 06, 2017 13:02
--- NOTE | 2017-07-06 13:04 | Immediate Post-Op Evaluation ---
Immediate Post-Op Evalulation Immediate Post-Op Evalulation Procedure: Lap Gina Date of Evaluation: Jul 06, 2017 Time of Evaluation: 14:00 IV Fluids: 500 Blood Products: 0 Estimated Blood Loss: 0 Urinary Output: 0 Blood Pressure Systolic: 145 Blood Pressure Diastolic: 58 Pulse Rate: 78 Respiratory Rate: 16 O2 Sat by Pulse Oximetry: 99 Temperature (Fahrenheit): 97 Pain Score (1-10): 0 Nausea: No Vomiting: No Patient Status: awake, reacts, patent, extubated Hydration Status: adequate Drug: Ceftriaxone Given Within 1 Hr of Incision: Yes Mickey Jarrett M.D. Jul 06, 2017 13:04
--- NOTE | 2017-07-06 13:05 | 48 Hour Post Anesthesia Eval ---
Post Anesthesia Evaluation Procedure: Lap Gina Date of Evaluation: Jul 08, 2017 Time of Evaluation: 08:00 Blood Pressure Systolic: 154 0: 58 Pulse Rate: 79 Respiratory Rate: 14 Temperature (Fahrenheit): 97 O2 Sat by Pulse Oximetry: 99 Airway: patent Nausea: No Vomiting: No Pain Intensity: 0 Hydration Status: adequate Mental Status/LOC: patient returned to baseline Post-Anesthesia Complications: none Follow-up care needed: patient intructions given Mickey Jarrett M.D. Jul 06, 2017 13:05
--- NOTE | 2017-07-06 13:35 | GI Initial Consult Note ---
History of Present Illness General Date patient seen: Jul 06, 2017 Time patient seen: 09:00 Reason for Hospitalization: Syncope Referring physician: DREW IVERSON Reason for Consultation: ABDOMINAL PAIN Present Illness HPI The patient was brought in by EMS. She is syncopal episode today and was eased to the floor. She's been feeling dizzy when she stands up. When paramedics there was is that she felt weak and dizzy. Her Accu-Chek in the field was normal. She's been eating for last week. She's recently diagnosed with gallbladder disease. Apparently she was going to have a evaluation by surgeon at this hospital tomorrow. She states she has 9/ 10 pain in the right upper quadrant that radiates towards her back and is constant. She's been taking Dilaudid for pain. The patient's in a rehabilitation facility for opiates. GI consulted for abdominal pain. HPI as noted above. Pt seen on floor, awake A&Ox4 NAD with no active s/sx of N/V/D. C/o of abdominal pain in the RUQ, now seen by surgery and scheduled for lap odette. Home Meds Reported Medications Albuterol Sulfate* (PROAIR HFA*) 8.5 Gm Hfa.aer.ad, INH Q6H, #8.5 GM 0 Refills 07/05/17 Albuterol Sulfate* (PROAIR HFA*) 8.5 Gm Hfa.aer.ad, 1 PUFF INH Q6H, #8.5 GM 0 Refills 07/05/17 Ondansetron* (ZOFRAN*) 4 Mg Tablet, 4 MG ORAL Q6H Y for Nausea & Vomiting, TAB 07/05/17 Hydroxyzine Pamoate* (HYDROXYZINE PAMOATE*) 100 Mg Capsule, 50 MG ORAL Q6H, #20 TAB 0 Refills 07/05/17 Clonidine Hcl* (CATAPRES*) 0.2 Mg Tablet, ORAL Q6HR, TAB 07/05/17 Levetiracetam* (LEVETIRACETAM*) 500 Mg Tablet, 500 MG ORAL TWICE A DAY, #60 TAB 0 Refills 07/05/17 Quetiapine Fumarate* (SEROQUEL*) 200 Mg Tablet, 300 MG ORAL DAILY, TAB 07/05/17 Metaxalone (Metaxall) 800 Mg Tablet, 800 MG PO FOUR TIMES A DAY, TAB 07/05/17 Lamotrigine* (LAMICTAL*) 100 Mg Tablet, 100 MG ORAL DAILY, #30 TAB 0 Refills 07/05/17 Hydrocodone Bit/Acetaminophen 5-325* (NORCO 5-325*) 1 Each Tablet, 1 TAB ORAL Q6H Y for For Pain, #10 TAB 0 Refills 07/05/17 Promethazine Hcl* (PHENERGAN*) 25 Mg Tablet, 25 MG ORAL Q6H, #15 TAB 0 Refills 07/05/17 Ibuprofen* (MOTRIN*) 600 Mg Tablet, 600 MG ORAL THREE TIMES A DAY, #30 TAB 0 Refills 07/05/17 Cephalexin* (CEPHALEXIN*) 500 Mg Tablet, 500 MG ORAL TWICE A DAY, CAP 07/05/17 Lurasidone HCl (Latuda) 60 Mg Tablet, 60 MG PO DAILY, TAB 07/05/17 Gabapentin* (GABAPENTIN*) 800 Mg Tablet, 900 MG ORAL THREE TIMES A DAY, TAB 07/05/17 Pantoprazole* (PROTONIX*) 40 Mg Tablet.dr, 40 MG ORAL DAILY, TAB 02/24/17 Multivitamins* (MULTIVITAMINS*) 1 Each Tablet, 1 TAB ORAL DAILY, TAB 0 Refills 02/24/17 Lamotrigine* (LAMICTAL*) 100 Mg Tablet, 100 MG ORAL DAILY, #30 TAB 0 Refills 02/24/17 Levetiracetam (KEPPRA) 500 Mg Tablet, 500 MG ORAL BID, #60 TAB 0 Refills 02/24/17 Propranolol Hcl* (INDERAL*) 20 Mg Tablet, 20 MG ORAL THREE TIMES A DAY, #90 TAB 0 Refills 02/24/17 Gabapentin* (GABAPENTIN*) 600 Mg Tablet, 600 MG ORAL THREE TIMES A DAY for 7 Days, TAB 02/24/17 Metronidazole* (FLAGYL*) 500 Mg Tablet, 500 MG ORAL TID for 10 Days, TAB 02/24/17 Med list reviewed/reconciled: Yes Allergies: Coded Allergies: No Known Allergies (Unverified , 02/23/17) Patient History History Provided By: Patient, Medical Record PMH Narrative Past Medical History: see triage record Social History: Reports: drug use Social History Narrative in Rehab Last Menstrual Period: last month Now: No Reviewed Nursing Documentation: PMH: Agreed, PSxH: Agreed Nursing Documentation-PMH Hx Cardiac Problems: Yes Hx Neurological Problems: Yes Hx Seizures: Yes Social History: Reports: drug use Review of Systems All Other Systems: negative except mentioned in HPI Physical Exam Vital Signs Date Time Temp Pulse Resp B/P (MAP) Pulse Ox O2 Delivery O2 Flow Rate FiO2 07/05/17 22:20 98.4 98 18 128/71 98 Room Air Sp02 EP Interpretation: reviewed, normal Labs Laboratory Tests Test 07/05/17 22:25 07/05/17 22:26 White Blood Count 6.3 K/UL (4.8-10.8) Red Blood Count 4.37 M/UL (4.20-5.40) Hemoglobin 12.8 G/DL (12.0-16.0) Hematocrit 37.1 % (37.0-47.0) Mean Corpuscular Volume 85 FL (80-99) Mean Corpuscular Hemoglobin 29.2 PG (27.0-31.0) Mean Corpuscular Hemoglobin Concent 34.5 G/DL (32.0-36.0) Red Cell Distribution Width 12.9 % (11.6-14.8) Platelet Count 186 K/UL (150-450) Mean Platelet Volume 7.1 FL (6.5-10.1) Neutrophils (%) (Auto) 48.2 % (45.0-75.0) Lymphocytes (%) (Auto) 41.3 % (20.0-45.0) Monocytes (%) (Auto) 6.0 % (1.0-10.0) Eosinophils (%) (Auto) 3.2 % (0.0-3.0) H Basophils (%) (Auto) 1.3 % (0.0-2.0) Prothrombin Time 9.9 SEC (9.30-11.50) Prothromb Time International Ratio 0.9 (0.9-1.1) Activated Partial Thromboplast Time 24 SEC (23-33) Sodium Level 142 MMOL/L (136-145) Potassium Level 3.9 MMOL/L (3.5-5.1) Chloride Level 105 MMOL/L (98-107) Carbon Dioxide Level 23 MMOL/L (21-32) Anion Gap 15 mmol/L (5-15) Blood Urea Nitrogen 11 mg/dL (7-18) Creatinine 0.8 MG/DL (0.55-1.30) Estimat Glomerular Filtration Rate > 60 mL/min (>60) Glucose Level 98 MG/DL (74-106) Calcium Level 9.3 MG/DL (8.5-10.1) Total Bilirubin 0.3 MG/DL (0.2-1.0) Aspartate Amino Transf (AST/SGOT) 34 U/L (15-37) Alanine Aminotransferase (ALT/SGPT) 37 U/L (12-78) Alkaline Phosphatase 83 U/L (46-116) Troponin I 0.000 ng/mL (0.000-0.056) Total Protein 8.1 G/DL (6.4-8.2) Albumin 4.3 G/DL (3.4-5.0) Globulin 3.8 g/dL Albumin/Globulin Ratio 1.1 (1.0-2.7) Lipase 134 U/L (73-393) Urine Color Yellow Urine Appearance Clear Urine pH 8 (4.5-8.0) Urine Specific [place] 1.015 (1.005-1.035) Urine Protein Negative (NEGATIVE) Urine Glucose (UA) Negative (NEGATIVE) Urine Ketones Negative (NEGATIVE) Urine Occult Blood Negative (NEGATIVE) Urine Nitrite Negative (NEGATIVE) Urine Bilirubin Negative (NEGATIVE) Urine Urobilinogen 1 MG/DL (0.0-1.0) H Urine Leukocyte Esterase 2+ (NEGATIVE) H Urine RBC 0-2 /HPF (0 - 2) Urine WBC 2-4 /HPF (0 - 2) Urine Squamous Epithelial Cells Few /LPF (NONE/OCC) Urine Bacteria Few /HPF (NONE) Urine HCG, Qualitative Negative General Appearance: well appearing, no apparent distress, alert Head: normocephalic EENT: PERRL/EOMI, normal ENT inspection Neck: supple Respiratory: normal breath sounds, no respiratory distress Cardiovascular: normal rate Gastrointestinal: normal inspection, non tender, soft, normal bowel sounds, non -distended Rectal: deferred Genitourinary: no CVA tenderness Musculoskeletal: normal inspection, back normal Neurologic: normal inspection, alert, oriented x3, responsive Psychiatric: normal inspection, judgement/insight normal, memory normal Skin: normal inspection, normal color, no rash, warm/dry, palpation normal, well hydrated Lymphatic: normal inspection, no adenopathy Current Medications Current Medications Medications (Trade) Dose Ordered Sig/Tamara Route PRN Reason Start Time Stop Time Status Last Admin Dose Admin Acetaminophen (Tylenol) 650 mg Q4H PRN RECTAL FEVER 07/06/17 00:15 08/05/17 00:14 Al Hydroxide/Mg Hydroxide (Mylanta) 15 ml Q6H PRN ORAL DYSPEPSIA 07/06/17 00:15 08/05/17 00:14 Ceftriaxone Sodium 1 gm/ Sodium Chloride 55 ml @ 110 mls/hr DAILY IVPB 07/06/17 09:00 07/13/17 08:59 07/06/17 08:59 Dextrose/ Electrolytes 1,000 ml @ 125 mls/hr Q8H IV 07/06/17 01:00 08/05/17 00:59 07/06/17 02:43 Diphenhydramine HCl (Benadryl) 12.5 mg Q6H PRN IVP Itching/Pruritis 07/06/17 00:15 08/05/17 00:14 Diphenhydramine HCl (Benadryl) 25 mg Q15M PRN IVP Itching 07/06/17 13:00 07/06/17 17:00 Fentanyl Citrate (Sublimaze 100 mcg/2 mL) 25 mcg Q10M PRN IV Moderate Pain (Pain Scale 4-6) 07/06/17 13:00 07/06/17 17:00 Hydralazine HCl (Apresoline) 5 mg Q30M PRN IV SBP>160 OR___/DBP>90 OR___ 07/06/17 13:00 07/06/17 17:00 Hydromorphone HCl (Dilaudid) 0.5 mg Q3H PRN IVP Pain Score 1-3 07/06/17 00:15 07/13/17 00:14 07/06/17 08:32 Hydromorphone HCl (Dilaudid) 1 mg Q3H PRN IVP pain score 4-6 07/06/17 00:15 07/13/17 00:14 Hydromorphone HCl (Dilaudid) 2 mg Q3H PRN IVP pain score 7-10 07/06/17 00:15 07/13/17 00:14 07/06/17 03:08 Ketorolac Tromethamine (Toradol 30mg) 30 mg Q1H PRN IV Severe Breakthru Pain (>7) 07/06/17 13:00 07/06/17 17:00 Lactated Ringer's 1,000 ml @ 10 mls/hr Q24H IVLG 07/06/17 12:58 07/06/17 14:57 Levetiracetam (Keppra) 500 mg BID ORAL 07/06/17 09:00 08/05/17 08:59 07/06/17 08:32 Metoclopramide HCl (Reglan) 10 mg Q1H PRN IVP Nausea & Vomiting 07/06/17 13:00 07/06/17 17:00 Metoclopramide HCl (Reglan) 10 mg Q6H PRN IVP Nausea & Vomiting 07/06/17 00:15 08/05/17 00:14 Midazolam HCl (Versed 2mg/2ml vial) 1 mg Q15M PRN IVP For Anxiety 07/06/17 13:00 07/06/17 17:00 Morphine Sulfate (Morphine Sulfate) 2 mg Q5M PRN IVP For Pain 07/06/17 13:00 07/06/17 17:00 Ondansetron HCl (Zofran) 4 mg Q1H PRN IVP Nausea & Vomiting 07/06/17 13:00 07/06/17 17:00 Ondansetron HCl (Zofran) 4 mg Q6H PRN IVP Nausea & Vomiting 07/06/17 00:15 08/05/17 00:14 GI: Plan Problems: (1) Symptomatic cholelithiasis (2) Biliary colic (3) Cholecystitis, acute with cholelithiasis Plan pt scheduled for lap odette today fu surgical recs symptomatic treatment post surgery pain mgmt adv diet per surgery zofran prn fu labs Discussed with Dr. Varghese. Thank you for this patient referral, we will follow. Lolita Hutchinson N.P. Jul 06, 2017 13:35
--- NOTE | 2017-07-06 13:50 | Brief Operative Note ---
Immediate Post Operative Note Operative Note Pre-op Diagnosis: acute cholecystitis Procedure: laparoscopic cholecystectomy Findings: consistent w/pre-op dx studies Surgeon: Amrit Anesthesiologist: Kolby Anesthesia: general Specimen: yes - gallbladder and stones Complications: none Condition: stable Fluids: see records Estimated Blood Loss: minimal Drains: none Implant(s) used?: No Emmanuel Marcus Jul 06, 2017 13:50
[2017-07-06] MEDS ORDERED: Norco 10mg/325mg tab ORAL PRN (14:00)
[2017-07-06] MEDS ORDERED: Milk of Magnesia 30ml Ud ORAL PRN (14:00)
[2017-07-06] MEDS ORDERED: ceFAZolin sod 2 GM in D5W 110 ML IV SCH (14:00)
[2017-07-06] MEDS ORDERED: Norco 5mg/325mg tab ORAL PRN (14:00)
[2017-07-06] MEDS ORDERED: Sennosides 8.6mg ORAL PRN (14:00)
[2017-07-06] MEDS: fentaNYL 100 mcg/2 mL IV PRN ×3 (14:04→14:33)
--- NOTE | 2017-07-06 14:17 | Cardiology Report ---
APPROVED REPORT EKG Measurement Heart [id number] DC [id number] Normal sinus rhythm Normal ECG
--- NOTE | 2017-07-06 14:37 | Diagnostic Imaging Report ---
Indication: Right upper quadrant pain, abnormal lipase, nausea Technique: Garcia-scale and duplex images of the upper abdomen were obtained Comparison: None Findings: Gallbladder demonstrates gallstones. No gallbladder wall thickening or pericholecystic fluid Sonographic Garay's sign is negative. Common bile duct measures 4 mm in diameter. No intrahepatic biliary ductal dilatation. Liver demonstrates diffusely increased echogenicity, consistent with diffuse hepatocellular disease, most likely fatty change. Portal vein and hepatic veins are patent. Pancreas is unremarkable. The spleen is enlarged, measuring 15.2 cm long axis dimension Left kidney measures 11.2 cm in length. Right kidney measures 12.1 cm length. Both kidneys demonstrate normal echogenicity. There is no hydronephrosis. No focal abnormality . Non-aneurysmal abdominal aorta . Impression: Cholelithiasis. Negative for dilated ducts Splenomegaly Liver demonstrates diffusely increased echogenicity, consistent with diffuse hepatocellular disease, most likely fatty change.
[2017-07-06] MEDS: Ketorolac 30mg Inj IV SCH ×2 (15:26→22:04)
--- NOTE | 2017-07-06 16:16 | History and Physical ---
History of Present Illness General Date patient seen: Jul 06, 2017 Reason for Hospitalization: Syncope Present Illness HPI 21 year old female with hx of drug abuse, cholelithiasis was brought in by EMS with complains of pain in her RUQ. She states she has 9/10 pain in the right upper quadrant that radiates towards her back and is constant. The patient's in a rehabilitation facility for opiate abuse. she was diagnosed to have recurrent cholecystis and is admitted for surgical evaluation. Pt was seen by surgeon and underwent cholecystectomy. Allergies: Coded Allergies: No Known Allergies (Unverified , 02/23/17) Medication History Scheduled Albuterol Sulfate* (Proair Hfa*), 1 PUFF INH Q6H, (Reported) Albuterol Sulfate* (Proair Hfa*), Unknown Dose INH Q6H, (Reported) Cephalexin* (Cephalexin*), 500 MG ORAL TWICE A DAY, (Reported) Clonidine Hcl* (Catapres*), Unknown Dose ORAL Q6HR, (Reported) Gabapentin* (Gabapentin*), 600 MG ORAL THREE TIMES A DAY, (Reported) Gabapentin* (Gabapentin*), 900 MG ORAL THREE TIMES A DAY, (Reported) Hydroxyzine Pamoate* (Hydroxyzine Pamoate*), 50 MG ORAL Q6H, (Reported) Ibuprofen* (Motrin*), 600 MG ORAL THREE TIMES A DAY, (Reported) Lamotrigine* (Lamictal*), 100 MG ORAL DAILY, (Reported) Lamotrigine* (Lamictal*), 100 MG ORAL DAILY, (Reported) Levetiracetam (Keppra), 500 MG ORAL BID, (Reported) Levetiracetam* (Levetiracetam*), 500 MG ORAL TWICE A DAY, (Reported) Lurasidone HCl (Latuda), 60 MG PO DAILY, (Reported) Metaxalone (Metaxall), 800 MG PO FOUR TIMES A DAY, (Reported) Metronidazole* (Flagyl*), 500 MG ORAL TID, (Reported) Multivitamins* (Multivitamins*), 1 TAB ORAL DAILY, (Reported) Pantoprazole* (Protonix*), 40 MG ORAL DAILY, (Reported) Promethazine Hcl* (Phenergan*), 25 MG ORAL Q6H, (Reported) Propranolol Hcl* (Inderal*), 20 MG ORAL THREE TIMES A DAY, (Reported) Quetiapine Fumarate* (Seroquel*), 300 MG ORAL DAILY, (Reported) Scheduled PRN Hydrocodone Bit/Acetaminophen 5-325* (Kincaid 5-325*), 1 TAB ORAL Q6H PRN for For Pain, (Reported) Ondansetron* (Zofran*), 4 MG ORAL Q6H PRN for Nausea & Vomiting, (Reported) Patient History Healthcare decision maker Resuscitation status Full Code Advanced Directive on File Past Medical/Surgical History Past Medical/Surgical History: (1) Biliary colic Review of Systems All Other Systems: negative except mentioned in HPI Physical Exam General Appearance: WD/WN Lines, tubes and drains: peripheral HEENT: normocephalic, atraumatic Respiratory/Chest: chest wall non-tender, lungs clear Breasts: no masses Cardiovascular/Chest: normal peripheral pulses Abdomen: normal bowel sounds, non tender Genitourinary/Rectal: normal genital exam Extremities: normal range of motion Last 24 Hour Vital Signs Date Time Temp Pulse Resp B/P (MAP) Pulse Ox O2 Delivery O2 Flow Rate FiO2 07/06/17 15:37 96 Nasal Cannula 2.0 07/06/17 15:03 98.5 07/06/17 15:00 98.5 95 13 149/91 100 Nasal Cannula 3.0 07/06/17 14:45 71 15 153/93 100 Nasal Cannula 3.0 07/06/17 14:30 73 15 152/89 100 Nasal Cannula 3.0 07/06/17 14:20 70 12 155/88 100 Simple Mask 6.0 07/06/17 14:10 70 14 152/91 100 Simple Mask 6.0 07/06/17 14:00 64 14 150/84 100 Simple Mask 6.0 07/06/17 13:55 72 17 159/87 100 Simple Mask 6.0 07/06/17 13:50 98.3 94 17 158/100 100 Simple Mask 6.0 07/06/17 13:05 79 14 99 07/06/17 13:04 78 16 99 07/06/17 12:00 97.6 77 17 102/65 07/06/17 08:00 97.5 81 17 127/81 07/06/17 04:00 97.3 82 18 132/70 97 Room Air 07/06/17 01:00 97.6 92 21 125/71 92 Room Air 07/06/17 01:00 97.6 92 21 125/71 92 Room Air 07/06/17 00:45 98.4 93 18 129/77 98 Room Air 07/05/17 23:00 98.4 86 18 117/61 98 Room Air 07/05/17 22:20 98.4 98 18 128/71 98 Room Air Intake and Output 07/06/17 07/07/17 19:00 07:00 Intake Total 800 ml Output Total 20 ml Balance 780 ml Intake IV Total 800 ml Output Estimated Blood Loss 20 ml Laboratory Tests Test 07/05/17 22:25 07/05/17 22:26 White Blood Count 6.3 K/UL (4.8-10.8) Red Blood Count 4.37 M/UL (4.20-5.40) Hemoglobin 12.8 G/DL (12.0-16.0) Hematocrit 37.1 % (37.0-47.0) Mean Corpuscular Volume 85 FL (80-99) Mean Corpuscular Hemoglobin 29.2 PG (27.0-31.0) Mean Corpuscular Hemoglobin Concent 34.5 G/DL (32.0-36.0) Red Cell Distribution Width 12.9 % (11.6-14.8) Platelet Count 186 K/UL (150-450) Mean Platelet Volume 7.1 FL (6.5-10.1) Neutrophils (%) (Auto) 48.2 % (45.0-75.0) Lymphocytes (%) (Auto) 41.3 % (20.0-45.0) Monocytes (%) (Auto) 6.0 % (1.0-10.0) Eosinophils (%) (Auto) 3.2 % (0.0-3.0) H Basophils (%) (Auto) 1.3 % (0.0-2.0) Prothrombin Time 9.9 SEC (9.30-11.50) Prothromb Time International Ratio 0.9 (0.9-1.1) Activated Partial Thromboplast Time 24 SEC (23-33) Sodium Level 142 MMOL/L (136-145) Potassium Level 3.9 MMOL/L (3.5-5.1) Chloride Level 105 MMOL/L (98-107) Carbon Dioxide Level 23 MMOL/L (21-32) Anion Gap 15 mmol/L (5-15) Blood Urea Nitrogen 11 mg/dL (7-18) Creatinine 0.8 MG/DL (0.55-1.30) Estimat Glomerular Filtration Rate > 60 mL/min (>60) Glucose Level 98 MG/DL (74-106) Calcium Level 9.3 MG/DL (8.5-10.1) Total Bilirubin 0.3 MG/DL (0.2-1.0) Aspartate Amino Transf (AST/SGOT) 34 U/L (15-37) Alanine Aminotransferase (ALT/SGPT) 37 U/L (12-78) Alkaline Phosphatase 83 U/L (46-116) Troponin I 0.000 ng/mL (0.000-0.056) Total Protein 8.1 G/DL (6.4-8.2) Albumin 4.3 G/DL (3.4-5.0) Globulin 3.8 g/dL Albumin/Globulin Ratio 1.1 (1.0-2.7) Lipase 134 U/L (73-393) Urine Color Yellow Urine Appearance Clear Urine pH 8 (4.5-8.0) Urine Specific [place] 1.015 (1.005-1.035) Urine Protein Negative (NEGATIVE) Urine Glucose (UA) Negative (NEGATIVE) Urine Ketones Negative (NEGATIVE) Urine Occult Blood Negative (NEGATIVE) Urine Nitrite Negative (NEGATIVE) Urine Bilirubin Negative (NEGATIVE) Urine Urobilinogen 1 MG/DL (0.0-1.0) H Urine Leukocyte Esterase 2+ (NEGATIVE) H Urine RBC 0-2 /HPF (0 - 2) Urine WBC 2-4 /HPF (0 - 2) Urine Squamous Epithelial Cells Few /LPF (NONE/OCC) Urine Bacteria Few /HPF (NONE) Urine HCG, Qualitative Negative Height (Feet): 5 Height (Inches): 7.00 Weight (Pounds): 232 Medications Current Medications Medications (Trade) Dose Ordered Sig/Tamara Route PRN Reason Start Time Stop Time Status Last Admin Dose Admin Acetaminophen (Tylenol) 650 mg Q4H PRN ORAL FEVER 07/06/17 14:00 08/05/17 13:59 Acetaminophen (Tylenol) 650 mg Q4H PRN RECTAL FEVER 07/06/17 00:15 08/05/17 00:14 Acetaminophen/ Hydrocodone Bitart ([place] 10/325) 1 ea Q4H PRN ORAL Severe Pain (Pain Scale 7-10) 07/06/17 14:00 07/13/17 13:59 Acetaminophen/ Hydrocodone Bitart ([place] 5/325) 1 tab Q4H PRN ORAL Moderate Pain (Pain Scale 4-6) 07/06/17 14:00 07/13/17 13:59 Al Hydroxide/Mg Hydroxide (Mylanta) 15 ml Q6H PRN ORAL DYSPEPSIA 07/06/17 14:00 08/05/17 13:59 Ceftriaxone Sodium 1 gm/ Sodium Chloride 55 ml @ 110 mls/hr DAILY IVPB 07/06/17 09:00 07/13/17 08:59 07/06/17 08:59 Clonidine HCl (Catapres) 0.1 mg Q6H PRN ORAL SBP > 160 07/06/17 16:00 08/05/17 15:59 Dextrose/ Electrolytes 1,000 ml @ 125 mls/hr Q8H IV 07/06/17 01:00 08/05/17 00:59 07/06/17 02:43 Diphenhydramine HCl (Benadryl) 12.5 mg Q6H PRN IVP Itching/Pruritis 07/06/17 14:00 08/05/17 13:59 Diphenhydramine HCl (Benadryl) 25 mg Q8H PRN ORAL Itching/Pruritis 07/06/17 14:00 08/05/17 13:59 Docusate Sodium (Colace) 100 mg TWICE A DAY ORAL 07/06/17 18:00 08/05/17 17:59 Hydromorphone HCl (Dilaudid) 0.5 mg Q3H PRN IVP Pain Score 1-3 07/06/17 14:00 07/13/17 13:59 Hydromorphone HCl (Dilaudid) 1 mg Q3H PRN IVP pain score 4-6 07/06/17 14:00 07/13/17 13:59 Hydromorphone HCl (Dilaudid) 2 mg Q3H PRN IVP pain score 7-10 07/06/17 14:00 07/13/17 13:59 Ketorolac Tromethamine (Toradol 30mg) 30 mg Q6H IV 07/06/17 15:00 07/08/17 11:00 07/06/17 15:26 Levetiracetam (Keppra) 500 mg BID ORAL 07/06/17 09:00 08/05/17 08:59 07/06/17 08:32 Magnesium Hydroxide (Mom) 30 ml BIDPRN PRN ORAL Constipation 07/06/17 14:00 08/05/17 13:59 Metoclopramide HCl (Reglan) 10 mg Q6H PRN IVP Nausea & Vomiting 07/06/17 14:00 08/05/17 13:59 Morphine Sulfate (Morphine Sulfate) 2 mg Q5M PRN IVP For Pain 07/06/17 13:00 07/06/17 17:00 Ondansetron HCl (Zofran) 4 mg Q6H PRN IVP Nausea & Vomiting 07/06/17 14:00 08/05/17 13:59 Sennosides (Senokot) 8.6 mg BIDPRN PRN ORAL Constipation 07/06/17 14:00 08/05/17 13:59 Assessment/Plan Problem List: (1) Cholecystitis, acute with cholelithiasis ICD Codes: K80.00 - Calculus of gallbladder with acute cholecystitis without obstruction SNOMED: 62154431 (2) Biliary colic ICD Codes: K80.50 - Calculus of bile duct without cholangitis or cholecystitis without obstruction SNOMED: 13042514 Assessment/Plan symptomatic treatment pain control start diet when ok with surgeon GI evaluation. DREW IVERSON Jul 06, 2017 16:16
[2017-07-06] MEDS: Docusate 100mg cap ORAL SCH (17:29)
--- NOTE | 2017-07-06 18:45 | Operative Note - Dictated ---
DATE OF OPERATION: 07/06/2017 PREOPERATIVE DIAGNOSES: 1. Acute cholecystitis. 2. Symptomatic cholelithiasis. POSTOPERATIVE DIAGNOSES: 1. Acute cholecystitis. 2. Symptomatic cholelithiasis. OPERATION PERFORMED: Laparoscopic cholecystectomy. ATTENDING SURGEON: Emmanuel Marcus M.D. KNOWLEDGE ARCHITECT: None. ANESTHESIOLOGIST: Mickey Jarrett M.D., anesthesiology. ANESTHESIA: General LEASE ANALYST. ESTIMATED BLOOD LOSS: Minimal. IV FLUIDS: Please see anesthesia record. SPECIMENS: Gallbladder and contained stones, sent to pathology for review. COMPLICATIONS: None. WOUND CLASSIFICATION: Class III. DRAINS: None. DISPOSITION: PACU. COUNTS: Sponge and needle count correct x2. SIGNIFICANT AND PERTINENT INTRAOPERATIVE FINDINGS: 1. Thick gallbladder wall. 2. Inflammatory process in the gallbladder hilum. 3. Satisfactory circumferential dissection of the cystic artery and duct prior to ligation and division. INDICATIONS FOR PROCEDURE: This is a 21-year-old female, who in the past two weeks has had multiple episodes of right upper quadrant abdominal tenderness with nausea, emesis, and anorexia with syncopal episodes. The patient states that she has been to the emergency department three times in the last two weeks and has been prior diagnosed with cholelithiasis. The patient was scheduled to see me for evaluation and potentially elective cholecystectomy later this week, who presented to the emergency department last night with an acute episode of right upper quadrant abdominal pain, inability to tolerate oral intake, nausea, vomiting, and syncopal episode. On examination, the patient had focal right upper quadrant tenderness and was uncomfortable and unable to tolerate oral intake. Given above, decision was made to admit the patient and proceed with cholecystectomy. Surgery was indicated as above. Risks, benefits, and alternatives were discussed with the patient in detail. The patient expressed that she is very uncomfortable and deteriorating given she is not able to tolerate oral intake out of both pain and fear of eating because of the pain. She states that given the three episodes and her going to the emergency department, there is a significant hindrance on her daily life and she is currently in rehab trying to recover from history of drug abuse and has been sober for one month and finds it very difficult to do so with current medical condition. The patient consented to surgery. Consent was in chart. OPERATIVE NOTE: The patient was taken to the operating room, placed on the operating table in supine position with bilateral arms out. All bony prominences were well padded with gel pads. SCDs were placed. Preoperative time-out was taken identifying the patient, procedure, operative staff, and surgical staff. No Vee catheter was inserted given the patient voided prior to entering the operating room. The patient was on scheduled IV antibiotics prior to entering the operating room. General anesthesia was induced and the patient was intubated. The abdomen was then prepped and draped in the standard surgical fashion. We began by making an infraumbilical incision using a fresh 15 scalpel. Incision was carried down to the fascia, which was elevated and incised. Entry into the abdomen was visualized using the open Mauricio technique and a second trocar was inserted. The abdomen was insufflated 12 to 15 mmHg. The patient tolerated the insufflation well. Laparoscope was inserted and the abdomen was inspected. There was some free fluid in the pelvis. Otherwise, no immediate complications from trocar insertion or other abnormalities were identified. The patient was placed in the reverse Trendelenburg position with left side down. Secondary trocars were placed under direct visualization beginning with a 12 mm trocar in the epigastric region followed by two 5 mm trocars in the right subcostal region. No complications from secondary trocar placement was noted. The dome of the gallbladder was grasped using the most lateral port and retracted over the liver. The infundibulum of the gallbladder was then grasped and retracted towards the appendix. This was used to expose the closed triangle. Using gentle dissection and electrocautery when necessary, filmy and thick adhesions of the peritoneal lining of the gallbladder wall was taken down. The peritoneal lining of the gallbladder wall was fairly thick posteriorly. In the hilum, there was significant thickening with some inflammatory process around the area of the cystic duct. The cystic duct and artery were then identified and circumferentially dissected out. Critical view was obtained identifying the cystic artery and duct as the only structures entering into the gallbladder with direct visualization of the cystic plate and the liver. Once this was satisfactory, the cystic duct and artery were doubly clipped and divided. Following this, the gallbladder was dissected off of the liver bed using electrocautery. The gallbladder was then placed in endoscopic retrieval bag and removed through the umbilical port site. The gallbladder fossa and liver bed were irrigated with copious amounts of normal saline until clear. Once this was complete, the gallbladder fossa and liver bed were inspected and good hemostasis had been achieved. The cystic duct and artery stump were identified and noted to be hemostatic and without any leakage of bile and satisfactory. At this time, secondary trocars were removed under direct visualization. The abdomen was allowed to desufflate and we began the conclusion of our procedure. The umbilical fascia site was closed using a #0 Vicryl UR suture. The wounds were then irrigated and skin incisions were closed using 4-0 Monocryl subcuticular interrupted sutures. Following this, Steri-Strips and dressings were applied. The patient tolerated the procedure well and was extubated and taken to the post anesthesia care unit in stable condition. The gallbladder and contained stones were sent to pathology for review. Emmanuel Marcus M.D. DR: MIKE JOB#: [id number] CC: KIN
[2017-07-07] VITALS: BP 106/57
[2017-07-07] MEDS: D5 1/2NS w/KCl 20mEq 1,000 ML IV SCH ×2 (01:00→04:16)
[2017-07-07] MEDS: Ketorolac 30mg Inj IV SCH ×3 (03:00→15:00)
[2017-07-07 04:00] VITALS: BP 136/94
[2017-07-07 07:14] LABS: BASOPHILS % (AUTO) 0.8 % (0.0-2.0); EOSINOPHILS % (AUTO) 4.9 % (0.0-3.0); LYMPHOCYTES % (AUTO) 36.6 % (20.0-45.0); MEAN CORPUSCULAR HEMOGLOBIN 28.6 PG (27.0-31.0); MEAN CORPUSCULAR HGB CONC 32.7 G/DL (32.0-36.0); MEAN CORPUSCULAR VOLUME 88 FL (80-99); MEAN PLATELET VOLUME 7.2 FL (6.5-10.1); MONOCYTES % (AUTO) 8.6 % (1.0-10.0); NEUTROPHILS % (AUTO) 49.1 % (45.0-75.0); PLATELET COUNT 155 K/UL (150-450); RED BLOOD COUNT 4.11 M/UL (4.20-5.40); RED CELL DISTRIBUTION WIDTH 13.5 % (11.6-14.8); WHITE BLOOD COUNT 6.2 K/UL (4.8-10.8)
--- NOTE | 2017-07-07 07:26 | 48 Hour Post Anesthesia Eval ---
Post Anesthesia Evaluation Procedure: Lap Gina Date of Evaluation: Jul 07, 2017 Time of Evaluation: 06:29 Blood Pressure Systolic: 136 0: 94 Pulse Rate: 20 Respiratory Rate: 20 Temperature (Fahrenheit): 97.2 O2 Sat by Pulse Oximetry: 98 Airway: patent Nausea: No Vomiting: No Pain Intensity: 2 Hydration Status: adequate Cardiopulmonary Status: Stable Mental Status/LOC: patient returned to baseline Follow-up Care/Observations: 0 Post-Anesthesia Complications: 0 Follow-up care needed: N/A Esteban Guzmán MD Jul 07, 2017 07:26
[2017-07-07 07:43] LABS: ALANINE AMINOTRANSFERASE 41 U/L (12-78); ALBUMIN/GLOBULIN RATIO 1.1 (1.0-2.7); ANION GAP 8 mmol/L (5-15); ASPARTATE AMINO TRANSFERASE 34 U/L (15-37); CALCIUM 8.7 MG/DL (8.5-10.1); CARBON DIOXIDE 25 MMOL/L (21-32); CHLORIDE 103 MMOL/L (98-107); CREATININE 0.8 MG/DL (0.55-1.30); GLOMERULAR FILTRATION RATE > 60 mL/min (>60); MAGNESIUM 1.8 MG/DL (1.8-2.4); PHOSPHORUS 3.9 MG/DL (2.5-4.9); POTASSIUM 4.1 MMOL/L (3.5-5.1); SODIUM 136 MMOL/L (136-145); TOTAL PROTEIN 6.8 G/DL (6.4-8.2)
[2017-07-07 08:30] VITALS: BP 137/76
[2017-07-07] MEDS: cefTRIAXone 1 GM in NS 55 ML IVPB SCH (09:08)
[2017-07-07] MEDS: Docusate 100mg cap ORAL SCH (09:08)
[2017-07-07 10:43] VITALS: BP 110/68
--- NOTE | 2017-07-07 10:52 | GI Progress Note ---
Assessment/Plan Problems: (1) S/P laparoscopic cholecystectomy ICD Codes: Z90.49 - Acquired absence of other specified parts of digestive tract SNOMED: 45939411, 16866706, 186376296 (2) Symptomatic cholelithiasis ICD Codes: K80.20 - Calculus of gallbladder without cholecystitis without obstruction SNOMED: 292856019 (3) Biliary colic ICD Codes: K80.50 - Calculus of bile duct without cholangitis or cholecystitis without obstruction SNOMED: 80412397 Status: stable Status Narrative Discussed with Dr. Varghese. Assessment/Plan fu surgical recs >> s/p lap odette post operative care pain mgmt adv diet per surgery zofran prn fu labs Subjective Subjective surgical pain Objective Last 24 Hour Vital Signs Date Time Temp Pulse Resp B/P (MAP) Pulse Ox O2 Delivery O2 Flow Rate FiO2 07/07/17 10:43 98.5 90 19 110/68 97 Room Air 07/07/17 10:21 98.5 07/07/17 09:39 97.2 07/07/17 09:19 97.2 07/07/17 08:30 98.3 96 20 137/76 96 Room Air 07/07/17 07:26 20 20 98 07/07/17 04:00 98.0 87 20 136/94 97 Room Air 07/07/17 00:00 97.9 83 18 106/57 95 07/06/17 20:00 98.2 91 19 114/73 96 07/06/17 20:00 96 Room Air 07/06/17 16:06 161/101 07/06/17 16:00 97.2 97 20 152/100 98 07/06/17 15:37 96 Nasal Cannula 2.0 07/06/17 15:30 97.2 75 19 143/99 07/06/17 15:03 98.5 07/06/17 15:00 98.5 95 13 149/91 100 Nasal Cannula 3.0 07/06/17 14:45 71 15 153/93 100 Nasal Cannula 3.0 07/06/17 14:30 73 15 152/89 100 Nasal Cannula 3.0 07/06/17 14:20 70 12 155/88 100 Simple Mask 6.0 07/06/17 14:10 70 14 152/91 100 Simple Mask 6.0 07/06/17 14:00 64 14 150/84 100 Simple Mask 6.0 07/06/17 13:55 72 17 159/87 100 Simple Mask 6.0 07/06/17 13:50 98.3 94 17 158/100 100 Simple Mask 6.0 07/06/17 13:05 79 14 99 07/06/17 13:04 78 16 99 07/06/17 12:00 97.6 77 17 102/65 Intake and Output 07/07/17 07/08/17 19:00 07:00 Intake Total 247.5 ml Balance 247.5 ml IV Total 247.5 ml Laboratory Tests Test 07/07/17 05:45 White Blood Count 6.2 K/UL (4.8-10.8) Red Blood Count 4.11 M/UL (4.20-5.40) L Hemoglobin 11.8 G/DL (12.0-16.0) L Hematocrit 36.0 % (37.0-47.0) L Mean Corpuscular Volume 88 FL (80-99) Mean Corpuscular Hemoglobin 28.6 PG (27.0-31.0) Mean Corpuscular Hemoglobin Concent 32.7 G/DL (32.0-36.0) Red Cell Distribution Width 13.5 % (11.6-14.8) Platelet Count 155 K/UL (150-450) Mean Platelet Volume 7.2 FL (6.5-10.1) Neutrophils (%) (Auto) 49.1 % (45.0-75.0) Lymphocytes (%) (Auto) 36.6 % (20.0-45.0) Monocytes (%) (Auto) 8.6 % (1.0-10.0) Eosinophils (%) (Auto) 4.9 % (0.0-3.0) H Basophils (%) (Auto) 0.8 % (0.0-2.0) Sodium Level 136 MMOL/L (136-145) Potassium Level 4.1 MMOL/L (3.5-5.1) Chloride Level 103 MMOL/L (98-107) Carbon Dioxide Level 25 MMOL/L (21-32) Anion Gap 8 mmol/L (5-15) Blood Urea Nitrogen 9 mg/dL (7-18) Creatinine 0.8 MG/DL (0.55-1.30) Estimat Glomerular Filtration Rate > 60 mL/min (>60) Glucose Level 96 MG/DL (74-106) Calcium Level 8.7 MG/DL (8.5-10.1) Phosphorus Level 3.9 MG/DL (2.5-4.9) Magnesium Level 1.8 MG/DL (1.8-2.4) Total Bilirubin 0.5 MG/DL (0.2-1.0) Aspartate Amino Transf (AST/SGOT) 34 U/L (15-37) Alanine Aminotransferase (ALT/SGPT) 41 U/L (12-78) Alkaline Phosphatase 74 U/L (46-116) Total Protein 6.8 G/DL (6.4-8.2) Albumin 3.5 G/DL (3.4-5.0) Globulin 3.3 g/dL Albumin/Globulin Ratio 1.1 (1.0-2.7) Height (Feet): 5 Height (Inches): 7.00 Weight (Pounds): 232 General Appearance: WD/WN, no apparent distress, alert Cardiovascular: normal rate Respiratory/Chest: normal breath sounds, no respiratory distress Abdominal Exam: normal bowel sounds, non tender, soft, incision site - c/d/i Extremities: normal range of motion, non-tender Lolita Hutchinson N.P. Jul 07, 2017 10:52
--- NOTE | 2017-07-07 11:21 | Infectious Diseases Prog Note ---
Assessment/Plan Assessment/Plan Abx: CEftriaxone 07/06- Assesment: Acute uncomplicated cholecystitis s/p laparoscopic cholecystectomy 07/06 Afebrile, no leukocytosis Seizure disorder Opioid abuse on rehab Plan: -Today last day of Ceftriaxone s/p POD #1- no further need for abx for this uncomplicated acute cholecystitis with adequate source control -monitor CBC/BMP, temperatures -wound care Thank you for this consultation. Will continue to follow along with you. Discussed with RN. Subjective Allergies: Coded Allergies: No Known Allergies (Unverified , 02/23/17) Subjective afebrile no leukocytosis s/p laparoscopic cholecystectomy yesterday, no complications Objective Vital Signs Last 24 Hour Vital Signs Date Time Temp Pulse Resp B/P (MAP) Pulse Ox O2 Delivery O2 Flow Rate FiO2 07/07/17 10:43 98.5 90 19 110/68 97 Room Air 07/07/17 10:21 98.5 07/07/17 09:39 97.2 07/07/17 09:19 97.2 07/07/17 08:30 98.3 96 20 137/76 96 Room Air 07/07/17 07:26 20 20 98 07/07/17 04:00 98.0 87 20 136/94 97 Room Air 07/07/17 00:00 97.9 83 18 106/57 95 07/06/17 20:00 98.2 91 19 114/73 96 07/06/17 20:00 96 Room Air 07/06/17 16:06 161/101 07/06/17 16:00 97.2 97 20 152/100 98 07/06/17 15:37 96 Nasal Cannula 2.0 07/06/17 15:30 97.2 75 19 143/99 07/06/17 15:03 98.5 07/06/17 15:00 98.5 95 13 149/91 100 Nasal Cannula 3.0 07/06/17 14:45 71 15 153/93 100 Nasal Cannula 3.0 07/06/17 14:30 73 15 152/89 100 Nasal Cannula 3.0 07/06/17 14:20 70 12 155/88 100 Simple Mask 6.0 07/06/17 14:10 70 14 152/91 100 Simple Mask 6.0 07/06/17 14:00 64 14 150/84 100 Simple Mask 6.0 07/06/17 13:55 72 17 159/87 100 Simple Mask 6.0 07/06/17 13:50 98.3 94 17 158/100 100 Simple Mask 6.0 07/06/17 13:05 79 14 99 07/06/17 13:04 78 16 99 07/06/17 12:00 97.6 77 17 102/65 Height (Feet): 5 Height (Inches): 7.00 Weight (Pounds): 232 Objective General Appearance: WD/WN, no apparent distress, alert Cardiovascular: normal rate Respiratory/Chest: normal breath sounds, no respiratory distress Abdominal Exam: normal bowel sounds, non tender, soft, incision site - c/d/i Extremities: normal range of motion, non-tender Laboratory Tests Test 07/07/17 05:45 White Blood Count 6.2 K/UL (4.8-10.8) Red Blood Count 4.11 M/UL (4.20-5.40) L Hemoglobin 11.8 G/DL (12.0-16.0) L Hematocrit 36.0 % (37.0-47.0) L Mean Corpuscular Volume 88 FL (80-99) Mean Corpuscular Hemoglobin 28.6 PG (27.0-31.0) Mean Corpuscular Hemoglobin Concent 32.7 G/DL (32.0-36.0) Red Cell Distribution Width 13.5 % (11.6-14.8) Platelet Count 155 K/UL (150-450) Mean Platelet Volume 7.2 FL (6.5-10.1) Neutrophils (%) (Auto) 49.1 % (45.0-75.0) Lymphocytes (%) (Auto) 36.6 % (20.0-45.0) Monocytes (%) (Auto) 8.6 % (1.0-10.0) Eosinophils (%) (Auto) 4.9 % (0.0-3.0) H Basophils (%) (Auto) 0.8 % (0.0-2.0) Sodium Level 136 MMOL/L (136-145) Potassium Level 4.1 MMOL/L (3.5-5.1) Chloride Level 103 MMOL/L (98-107) Carbon Dioxide Level 25 MMOL/L (21-32) Anion Gap 8 mmol/L (5-15) Blood Urea Nitrogen 9 mg/dL (7-18) Creatinine 0.8 MG/DL (0.55-1.30) Estimat Glomerular Filtration Rate > 60 mL/min (>60) Glucose Level 96 MG/DL (74-106) Calcium Level 8.7 MG/DL (8.5-10.1) Phosphorus Level 3.9 MG/DL (2.5-4.9) Magnesium Level 1.8 MG/DL (1.8-2.4) Total Bilirubin 0.5 MG/DL (0.2-1.0) Aspartate Amino Transf (AST/SGOT) 34 U/L (15-37) Alanine Aminotransferase (ALT/SGPT) 41 U/L (12-78) Alkaline Phosphatase 74 U/L (46-116) Total Protein 6.8 G/DL (6.4-8.2) Albumin 3.5 G/DL (3.4-5.0) Globulin 3.3 g/dL Albumin/Globulin Ratio 1.1 (1.0-2.7) Current Medications Medications (Trade) Dose Ordered Sig/Tamara Route PRN Reason Start Time Stop Time Status Last Admin Dose Admin Acetaminophen (Tylenol) 650 mg Q4H PRN ORAL FEVER 07/06/17 14:00 08/05/17 13:59 07/07/17 08:20 Acetaminophen (Tylenol) 650 mg Q4H PRN RECTAL FEVER 07/06/17 00:15 08/05/17 00:14 Acetaminophen/ Hydrocodone Bitart (Streeter 10/325) 1 ea Q4H PRN ORAL Severe Pain (Pain Scale 7-10) 07/06/17 14:00 07/13/17 13:59 Acetaminophen/ Hydrocodone Bitart (Streeter 5/325) 1 tab Q4H PRN ORAL Moderate Pain (Pain Scale 4-6) 07/06/17 14:00 07/13/17 13:59 Al Hydroxide/Mg Hydroxide (Mylanta) 15 ml Q6H PRN ORAL DYSPEPSIA 07/06/17 14:00 08/05/17 13:59 Ceftriaxone Sodium 1 gm/ Sodium Chloride 55 ml @ 110 mls/hr DAILY IVPB 07/06/17 09:00 07/13/17 08:59 07/07/17 09:08 Clonidine HCl (Catapres) 0.1 mg Q6H PRN ORAL SBP > 160 07/06/17 16:00 08/05/17 15:59 07/06/17 16:06 Dextrose/ Electrolytes 1,000 ml @ 125 mls/hr Q8H IV 07/06/17 01:00 08/05/17 00:59 07/07/17 04:16 Diphenhydramine HCl (Benadryl) 12.5 mg Q6H PRN IVP Itching/Pruritis 07/06/17 14:00 08/05/17 13:59 Diphenhydramine HCl (Benadryl) 25 mg Q8H PRN ORAL Itching/Pruritis 07/06/17 14:00 08/05/17 13:59 Docusate Sodium (Colace) 100 mg TWICE A DAY ORAL 07/06/17 18:00 08/05/17 17:59 07/07/17 09:08 Hydromorphone HCl (Dilaudid) 0.5 mg Q3H PRN IVP Pain Score 1-3 07/06/17 14:00 07/13/17 13:59 Hydromorphone HCl (Dilaudid) 1 mg Q3H PRN IVP pain score 4-6 07/06/17 14:00 07/13/17 13:59 Hydromorphone HCl (Dilaudid) 2 mg Q3H PRN IVP pain score 7-10 07/06/17 14:00 07/13/17 13:59 07/07/17 09:51 Ketorolac Tromethamine (Toradol 30mg) 30 mg Q6H IV 07/06/17 15:00 07/08/17 11:00 07/07/17 09:08 Levetiracetam (Keppra) 500 mg BID ORAL 07/06/17 09:00 08/05/17 08:59 07/07/17 09:07 Magnesium Hydroxide (Mom) 30 ml BIDPRN PRN ORAL Constipation 07/06/17 14:00 08/05/17 13:59 Metoclopramide HCl (Reglan) 10 mg Q6H PRN IVP Nausea & Vomiting 07/06/17 14:00 08/05/17 13:59 Ondansetron HCl (Zofran) 4 mg Q6H PRN IVP Nausea & Vomiting 07/06/17 14:00 08/05/17 13:59 Sennosides (Senokot) 8.6 mg BIDPRN PRN ORAL Constipation 07/06/17 14:00 08/05/17 13:59 Luz Dumont M.D. Jul 07, 2017 11:21
[2017-07-07 13:05] VITALS: BP 122/77
--- NOTE | 2017-07-07 13:56 | General Progress Note ---
Progress Note Progress Note Surgery: no acute events. doing well. comfortable. incisional pain. no n/v/f/c. ambulatory. tolerating diet. afebrile, Hd stable, labs okay, exam benign. abdomen soft, nt/nd, bs+ -okay to d/c home today follow up with me in 1 week rx written Emmanuel Marcus Jul 07, 2017 13:56
[2017-07-07] MEDS ORDERED: NORCO 5-325 TA1 EAC1 ORAL (14:16)
[2017-07-07] MEDS ORDERED: COLACE100 MG ORAL (14:17)
--- NOTE | 2017-07-09 09:14 | Discharge Summary ---
Discharge Summary Hospital Course Date of Admission Jul 05, 2017 at 23:46 Date of Discharge Jul 07, 2017 at 15:50 Admitting Diagnosis BILIARY COLIC/SYNCOPE HPI Elizabeth Mccord is a 21 year old female who was admitted on Jul 05, 2017 at 23:46 for Biliary Colic/Syncope Hospital Course [id number] Discharge Discharge Disposition Patient was discharged to [facility] Discharge Diagnoses: Patricia Johns NP Jul 09, 2017 09:14
--- NOTE | 2017-07-10 | Discharge Summary 2 SIG ---
DATE OF ADMISSION: 07/05/2017 DATE OF DISCHARGE: 07/07/2017 CONSULTANTS: 1. Emmanuel Marcus MD. 2. Luz Dumont M.D 3. Oscar Varghese M.D. BRIEF HOSPITAL COURSE: The patient is a 21-year-old female with history of drug abuse and cholelithiasis, was brought in by EMS with complaints of pain on the right upper quadrant. Pain was described to be 9/10, located at the right upper quadrant that radiates towards the back. Pain was constant. She is in a rehabilitation facility for opiate abuse. In the past two weeks, she has had three times ED visit regarding abdominal pain. She was diagnosed with cholelithiasis and was scheduled to see a surgeon this coming week for a possible elective cholecystectomy. She had associated nausea with multiple episodes of bilious emesis and pain usually started after meals and lasted for hours. She is unable to tolerate oral diet due to fear of recurrent pain. On evaluation at ED, labs showed normal WBC. Lipase was 134. Troponin was negative. Abdominal ultrasound showed cholelithiasis. Dr. Marcus was consulted. She was started on ceftriaxone. She underwent laparoscopic cholecystectomy on 07/06/[address] Marcus. Intraoperative findings showed thick gallbladder wall with inflammatory process in the gallbladder hilum. Postoperatively, diet was slowly advanced. Abdomen was soft, nontender, and nondistended with positive bowel sounds. Antibiotic was discontinued. No further need for antibiotics due to uncomplicated acute cholecystitis with adequate source of control. She was cleared for discharge to follow up with Dr. Marcus in a week. FINAL DIAGNOSES: 1. Acute cholecystitis. 2. Symptomatic cholelithiasis. 3. Status post laparoscopic cholecystectomy. 4. Seizure disorder. 5. Cirrhosis. 6. Opioid abuse, on rehabilitation. DISPOSITION: The patient was discharged to [facility]. DISCHARGE MEDICATIONS: Refer to medication list. FOLLOWUP: Follow up with Dr. Marcus in a week. Kristen Webster M.D. I have been assigned to dictate discharge summary on this account and I was not involved in the patient's management. Patricia Johns N.P. DR: June JOB#: [id number] CC: KIN
== END 2017-07-07 15:50 | disposition short-term general hospital (02) | DRG 419 ==
LOC: EDBD 22:26 → EMR 22:39 → 3E 23:46 → EDBEDREQ 07-06 00:15 → 3E 07-06 01:10
PROC: 0FT44ZZ Resection of Gallbladder, Percutaneous Endoscopic Approach (ICD-10-PCS; principal; 2017-07-06 12:00)
DX: K80.00 Calculus of gallbladder with acute cholecystitis without obstruction (principal); K74.60 Unspecified cirrhosis of liver; F11.10 Opioid abuse, uncomplicated; G40.909 Epilepsy, unspecified, not intractable, without status epilepticus; R55 Syncope and collapse
CPT/HCPCS: 36415; 76700; 80053; 80299; 81003; 81025; 83690; 83735; 84100; 84484; 85025; 85610; 85730; 86850; 86900; 86901; 93005; 94003; 94150; 99285; J2250; J2405; J2710; J2765

== ENCOUNTER 2017-07-07 19:49 | Emergency (ER) | payer BC ==
[~2017-07-07] VITALS: Ht 170.2 cm; Wt 104.8 kg
[~2017-07-07 19:49] MED LIST changes: +CATAPRES0.2 MG ORAL; +CEPHALEXIN500 M1 ORAL; +COLACE100 MG ORAL; +HYDROXYZINE PA100 MG ORAL; +IBUPROFEN600 MG ORAL; +LATUDA60 MG PO; +LEVETIRACETAM500 MG ORAL; +METAXALL800 MG PO; +NORCO 5-325 TA1 EAC1 ORAL; +NORCO 5-325 TA1 EACH ORAL; +PHENERGAN25 M1 ORAL; +PROAIR HFA8.5 GM INH; +SEROQUEL200 MG ORAL; +ZOFRAN4 M3 ORAL
[2017-07-07 21:10] LABS: BASOPHILS % (AUTO) 1.2 % (0.0-2.0); EOSINOPHILS % (AUTO) 2.6 % (0.0-3.0); LYMPHOCYTES % (AUTO) 28.6 % (20.0-45.0); MEAN CORPUSCULAR HEMOGLOBIN 28.2 PG (27.0-31.0); MEAN CORPUSCULAR HGB CONC 32.9 G/DL (32.0-36.0); MEAN CORPUSCULAR VOLUME 86 FL (80-99); MEAN PLATELET VOLUME 7.5 FL (6.5-10.1); MONOCYTES % (AUTO) 6.1 % (1.0-10.0); NEUTROPHILS % (AUTO) 61.6 % (45.0-75.0); PLATELET COUNT 176 K/UL (150-450); RED BLOOD COUNT 4.35 M/UL (4.20-5.40); RED CELL DISTRIBUTION WIDTH 13.3 % (11.6-14.8); WHITE BLOOD COUNT 6.5 K/UL (4.8-10.8)
[2017-07-07 21:12] LABS: APPEARANCE,URINE CLEAR; KETONES,URINE NEGATIVE (NEGATIVE); LEUKOCYTE ESTERASE ,URINE 2+ (NEGATIVE); NITRITE,URINE NEGATIVE (NEGATIVE); PH,URINE 7 (4.5-8.0); PROTEIN,URINE NEGATIVE (NEGATIVE); UROBILINOGEN,URINE NORMAL MG/DL (0.0-1.0)
[2017-07-07 21:19] LABS: BACTERIA,URINE FEW /HPF; RBC,URINE 0-2 /HPF (0 - 2); SQUAMOUS EPITHELIAL CELL,UR FEW /LPF (NONE/OCC)
[2017-07-07 21:23] LABS: ANION GAP 8 mmol/L (5-15); CALCIUM 9.6 MG/DL (8.5-10.1); CARBON DIOXIDE 27 MMOL/L (21-32); CHLORIDE 104 MMOL/L (98-107); CREATININE 0.8 MG/DL (0.55-1.30); GLOMERULAR FILTRATION RATE > 60 mL/min (>60); SODIUM 139 MMOL/L (136-145)
--- NOTE | 2017-07-07 21:25 | Emergency Room Report ---
History of Present Illness General Chief Complaint: Abdominal Pain Source: Patient, Medical Record Present Illness HPI 21-year-old female, history of IV drug abuse, chronic pain, recent cholecystectomy for chronic right upper quadrant pain, recently discharged from hospital this morning, presenting with pain. Patient states that she still has had pain, not necessarily worse than her normal. Denies any fever chills nausea vomiting diarrhea Allergies: Coded Allergies: No Known Allergies (Unverified , 02/23/17) Patient History Past Medical History: see triage record Past Surgical History: none Pertinent Family History: none Last Menstrual Period: a month ago Now: No Reviewed Nursing Documentation: PMH: Agreed, PSxH: Agreed Nursing Documentation-PMH Hx Cardiac Problems: Yes Hx Cancer: No Hx Gastrointestinal Problems: Yes Hx Neurological Problems: Yes Hx Seizures: Yes Review of Systems All Other Systems: negative except mentioned in HPI Physical Exam Vital Signs Date Time Temp Pulse Resp B/P (MAP) Pulse Ox O2 Delivery O2 Flow Rate FiO2 07/07/17 19:44 97.9 88 18 132/80 98 Sp02 EP Interpretation: reviewed, normal General Appearance: alert, GCS 15, non-toxic, mild distress Head: normocephalic, atraumatic Eyes: bilateral eye normal inspection, bilateral eye PERRL, bilateral eye EOMI ENT: normal ENT inspection, normal pharynx, normal voice, moist mucus membranes Neck: normal inspection, full range of motion, supple Respiratory: normal inspection, lungs clear, normal breath sounds, no respiratory distress, no retraction, no wheezing, speaking full sentences, chest symmetrical Cardiovascular #1: normal inspection, regular rate, rhythm, no edema, normal capillary refill Cardiovascular #2: 2+ radial (R), 2+ radial (L) Gastrointestinal: soft, non-distended, no guarding, other - Laparoscopic surgical scars with clean dry intact dressing, abdomen is very soft, only mild generalized tenderness, no guarding or rigidity Musculoskeletal: normal inspection, back normal, normal range of motion, non- tender Neurologic: normal inspection, alert, oriented x3, responsive, motor strength/ tone normal, sensory intact, normal gait, speech normal Psychiatric: normal inspection, judgement/insight normal, memory normal Skin: normal inspection, normal color, no rash, warm/dry, well hydrated, normal turgor Medical Decision Making Diagnostic Impression: Primary Impression: Abdominal pain Additional Impression: S/P laparoscopic cholecystectomy ER Course 21-year-old female with abdominal pain Differential Diagnosis: Abdominal pain is likely secondary to postsurgical healing, at this time I am not concerned with acute surgical process, abdomen is very soft Plan: Basic labs, ua, ekg Discussed with the patient's surgeon, Dr. Marcus At this time not concern was any acute process, we'll perform labs and likely discharge home ER course: Patient has remained stable during ED stay. Patient has been stable, repeat abdominal exam is benign, she has been speaking on phone, nontoxic-appearing Patient wants to leave AGAINST MEDICAL ADVICE and just wants to go home before labs Disposition: Patient is leaving AMA Patient is instructed to follow up with their surgeon in one week Strict return precautions discussed with patient such as fever, chills, worsening/severe abdominal pain, nausea, vomiting, black or bloody stools, which may indicate severe illness. Patient verbalizes understanding and agrees with plan. Patient is clinically sober, is free from from distracting injury, and has intact judgement and capacity to decide to leave against medical advice. Patient verbalized understanding of my concern and my need to do lab results, but patient states "I want to go home and rest ". I explained to patient the risks of leaving AMA and patient informed that if they leave, they could get worse, ould become become critically ill, possibly become disabled or . Patient verbalized back to me understanding of these risks but still wants to leave. Please note that this Emergency Department Report was dictated using [employer] spray technology software, occasionally this can lead to erroneous entry secondary to interpretation by the dictation equipment Laboratory Tests Test 07/07/17 20:45 White Blood Count 6.5 K/UL (4.8-10.8) Red Blood Count 4.35 M/UL (4.20-5.40) Hemoglobin 12.3 G/DL (12.0-16.0) Hematocrit 37.3 % (37.0-47.0) Mean Corpuscular Volume 86 FL (80-99) Mean Corpuscular Hemoglobin 28.2 PG (27.0-31.0) Mean Corpuscular Hemoglobin Concent 32.9 G/DL (32.0-36.0) Red Cell Distribution Width 13.3 % (11.6-14.8) Platelet Count 176 K/UL (150-450) Mean Platelet Volume 7.5 FL (6.5-10.1) Neutrophils (%) (Auto) 61.6 % (45.0-75.0) Lymphocytes (%) (Auto) 28.6 % (20.0-45.0) Monocytes (%) (Auto) 6.1 % (1.0-10.0) Eosinophils (%) (Auto) 2.6 % (0.0-3.0) Basophils (%) (Auto) 1.2 % (0.0-2.0) Urine Color Pale yellow Urine Appearance Clear Urine pH 7 (4.5-8.0) Urine Specific Mack 1.005 (1.005-1.035) Urine Protein Negative (NEGATIVE) Urine Glucose (UA) Negative (NEGATIVE) Urine Ketones Negative (NEGATIVE) Urine Occult Blood Negative (NEGATIVE) Urine Nitrite Negative (NEGATIVE) Urine Bilirubin Negative (NEGATIVE) Urine Urobilinogen Normal MG/DL (0.0-1.0) Urine Leukocyte Esterase 2+ (NEGATIVE) H Urine RBC 0-2 /HPF (0 - 2) Urine WBC 2-4 /HPF (0 - 2) Urine Squamous Epithelial Cells Few /LPF (NONE/OCC) Urine Bacteria Few /HPF (NONE) Urine HCG, Qualitative Negative Sodium Level 139 MMOL/L (136-145) Potassium Level 4.0 MMOL/L (3.5-5.1) Chloride Level 104 MMOL/L (98-107) Carbon Dioxide Level 27 MMOL/L (21-32) Anion Gap 8 mmol/L (5-15) Blood Urea Nitrogen 7 mg/dL (7-18) Creatinine 0.8 MG/DL (0.55-1.30) Estimate Glomerular Filtration Rate > 60 mL/min (>60) Glucose Level 93 MG/DL (74-106) Calcium Level 9.6 MG/DL (8.5-10.1) Total Bilirubin 0.5 MG/DL (0.2-1.0) Aspartate Amino Transferase (AST) 46 U/L (15-37) H Alanine Aminotransferase (ALT) 52 U/L (12-78) Alkaline Phosphatase 87 U/L (46-116) Total Protein 7.9 G/DL (6.4-8.2) Albumin 4.2 G/DL (3.4-5.0) Globulin 3.7 g/dL Albumin/Globulin Ratio 1.1 (1.0-2.7) Lipase 91 U/L (73-393) Last Vital Signs Date Time Temp Pulse Resp B/P (MAP) Pulse Ox O2 Delivery O2 Flow Rate FiO2 07/07/17 19:44 97.9 88 18 132/80 98 Disposition: AGAINST MEDICAL ADVICE Condition: Stable Patient Instructions: Abdominal Pain, Adult Idalmis Celeste M.D. Jul 07, 2017 21:25
[2017-07-07 21:28] LABS: ALANINE AMINOTRANSFERASE 52 U/L (12-78); ALBUMIN/GLOBULIN RATIO 1.1 (1.0-2.7); ASPARTATE AMINO TRANSFERASE 46 U/L (15-37); LIPASE 91 U/L (73-393); TOTAL PROTEIN 7.9 G/DL (6.4-8.2)
[2017-07-07 23:32] VITALS: BP 132/80
[2017-07-07 23:36] VITALS: BP 132/80
== END 2017-07-07 22:17 | disposition left against medical advice (07) ==
LOC: EDBD 19:49 → EMR 22:17
DX: R10.31 Right lower quadrant pain (principal); Z90.49 Acquired absence of other specified parts of digestive tract
CPT/HCPCS: 36415; 80053; 81003; 81025; 83690; 85025; 96360; 99284; J2405